=== PATIENT | female | born 1990 | race Caucasian/White ===

== ENCOUNTER 2020-07-14 06:52 | Inpatient (IN) | payer BC, SELFPAY ==
[2020-07-14] VITALS (79 sets, daily range): BP systolic 63–128; BP diastolic 35–96; PULSE 46–120; RESP 16; TEMP 36.1–36.7; O2SAT 83–100; BMI 29.5
[2020-07-14 08:19] LABS: Basophils Percent Auto 0.2 % (0.2-1.2); Eosinophils Absolute Auto 0.1 K/mm3 (0-0.3); Eosinophils Percent Auto 1.5 % (0-4.4); Hematocrit 37.1 % (37.0-47.0); Hemoglobin 12.5 g/dL (12.0-15.0); Immature Granulocyte Absolute 0.05 K/mm3 (0.00-0.031); Immature Granulocyte Percent A 0.6 % (0-0.5); Lymphocytes Absolute Auto 1.99 K/mm3 (0.9-3.2); Lymphocytes Percent Auto 23.2 % (18.3-44.2); Mean Corpuscular HGB Conc 33.7 g/dl (32-36); Mean Corpuscular Hemoglobin 33.2 pg (26-34); Mean Corpuscular Volume 98.7 fl (80-100); Mean Platelet Volume 11.1 fl (7.4-10.4); Monocytes Absolute Auto 0.4 K/mm3 (0.1-0.6); Monocytes Percent Auto 4.8 % (2.6-8.5); Neutrophils Percent Auto 69.7 % (45.5-73.1); Platelet Count Result 186 k/mm3 (150-375); Red Blood Count 3.76 M/mm3 (4.2-5.4); Red Cell Distribution Width 12.9 % (11.5-14.5); White Blood Count 8.6 K/mm3 (4.5-10.0)
[2020-07-14] MEDS: LACTATED RINGERS 1,000 ML 125 ML IV CONT ×2 (08:19→09:09)
[2020-07-14] MEDS: OXYTOCIN 30 UNITS/NS 500 ML 30 UNITS/500 ML BAG IV CONT (08:20)
[2020-07-14 08:28] LABS: Glucose Point of Care 115 (65-105)
[2020-07-14 09:04] LABS: HIV 1/2 Ab P24 Ag Result Negative (Negative)
--- NOTE | 2020-07-14 09:28 | WPDANESEPP ---
Anes - Eval Pre Procedure Procedure: labor epidural Date/Time: 07/14/20 09:28 Surgeon: Cathi Preop Diagnosis: Labor pain Pre Op Diagnosis: ind Patient Data Age: 30 Gender: F Height: Weight: Last Vital Signs Temp 36.2 C L 07/14/20 08:00 Pulse 66 07/14/20 09:27 BP 97/61 L 07/14/20 09:27 Pulse Ox 100 07/14/20 09:25 Allergies Allergy/AdvReac Type Severity Reaction Status Date / Time No Known Allergies Allergy Verified 06/17/20 13:02 Home Medications Medication Instructions Recorded Confirmed Type PNV cmb#95-ferrous fumarate-FA 1 tablet PO DAILY 06/17/20 06/17/20 History [] fluoxetine 20 mg PO DAILY 06/17/20 06/17/20 History Laboratory Tests 07/14/20 07/14/20 07/14/20 07:24 07:24 07:24 WBC 8.6 K/mm3 K/mm3 (4.5-10.0) RBC 3.76 M/mm3 L M/mm3 (4.2-5.4) Hgb 12.5 g/dL g/dL (12.0-15.0) Hct 37.1 % % (37.0-47.0) MCV 98.7 fl fl (80-100) MCH 33.2 pg pg (26-34) MCHC 33.7 g/dl g/dl (32-36) RDW 12.9 % % (11.5-14.5) Plt Count 186 k/mm3 k/mm3 (150-375) MPV 11.1 fl H fl (7.4-10.4) Immature Gran % (Auto) 0.6 % H % (0-0.5) Neut % (Auto) 69.7 % % (45.5-73.1) Lymph % (Auto) 23.2 % % (18.3-44.2) [place] % (Auto) 4.8 % % (2.6-8.5) Eos % (Auto) 1.5 % % (0-4.4) Baso % (Auto) 0.2 % % (0.2-1.2) Lymph # (Auto) 1.99 K/mm3 K/mm3 (0.9-3.2) [place] # (Auto) 0.4 K/mm3 K/mm3 (0.1-0.6) Eos # (Auto) 0.1 K/mm3 K/mm3 (0-0.3) Baso # (Auto) 0.0 K/mm3 K/mm3 (0.0-0.1) Abs Immat Gran (auto) 0.05 K/mm3 H K/mm3 (0.00-0.031) Absolute Neuts (auto) 6.0 K/mm3 K/mm3 (1.3-6.7) Absolute Nucleated RBC 0.0 K/mm3 K/mm3 (0.0-0.012) Nucleated RBC % 0.0 % % (0.0-0.2) POC Capillary Glucose RPR Pending HIV 1&2 Ab/P24 Ag 4thGn Negative (Negative) 07/14/20 08:22 WBC RBC Hgb Hct MCV MCH MCHC RDW Plt Count MPV Immature Gran % (Auto) Neut % (Auto) Lymph % (Auto) [place] % (Auto) Eos % (Auto) Baso % (Auto) Lymph # (Auto) [place] # (Auto) Eos # (Auto) Baso # (Auto) Abs Immat Gran (auto) Absolute Neuts (auto) Absolute Nucleated RBC Nucleated RBC % POC Capillary Glucose 115 mg/dl H mg/dl (65-105) RPR HIV 1&2 Ab/P24 Ag 4thGn Patient hx anesthesia problems: none Family hx anesthesia problems: none [facility] Past Medical History Medical History (Updated 07/14/20 @ 09:29 by Mauricio Davila DO) Anxiety Family History Family History (Updated 06/17/20 @ 13:06 by Nereida Noel RN) Mother Hypertension Grandparent Diabetes mellitus Grandparent Pancreas cancer Grandparent Lung cancer Father Diverticulitis Social History Social History Substance use: never Spiritual care concerns: No Exam Day of Procedure 07/14/20 09:28
--- NOTE | 2020-07-14 09:40 | WPDOBADMIT ---
Obstetrics - Admit Note Admission Note: record reviewed. Additions to the history and/or subsequent changes in the physical findings follow. 30 y/o at 39 1/7 weeks here for induction of labor. GBS neg. Had elevated GCT at 162, declined the three hour diagnostic test. However, she had two days of accuchecks that were normal. So no diagnosis of gestational diabetes in this . AVSS NST reactive TOCO: contractions every 4-5 min ABD soft, nontender, gravid, vertex EXT nontender Cervix 4/50/-2. AROM with clear fluid. Vertex. A: IUP at term with favorable cervix. P: Oxytocin. Anticipate .
--- NOTE | 2020-07-14 11:50 | P.PCNOB_ITS ---
OB - Delivery Note Procedure Delivery date: 07/14/20 Procedure: Induction of labor with Induction method: AROM and per pitocin protocol Delivery monitor: external FHT, external uterine and internal uterine Route of delivery: Laceration Description: Perineal - 2nd Degree Delivery repair: vicryl (3-0) Specimen: Yes (cord blood) Estimated blood loss (mL): 80 Anesthesia type: Epidural Disposition: PACU Complications: None Narrative: 30 y/o at 39 1/7 weeks gestation who presented to the hospital for induction of labor. Oxytocin was administered intravenously. Amniotomy was performed with return of clear fluid. She received an epidural for pain control. Her labor progressed and her cervix dilated completely. She pushed with good effort and delivered the infant's head to the perineum, followed by the body. The nose and mouth were bulb suctioned. After a delay, the cord was clamped and cut. The was handed off the field. Cord blood was collected. The placenta delivered spontaneously and was grossly normal in appearance. The usual 3 vessel cord was noted. A second degree midline perineal laceration was sustained. This was reapproximated using 3 0 Vicryl in the usual layered fashion. Excellent hemostasis resulted as did excellent reapproximation of the normal anatomy. Needle and instrument counts were correct. The patient was taken to recovery room in stable condition. The went to the nursery in stable condition. I was present and scrubbed for the entire delivery. [place] Baby Date of : 07/14/20 Time of : 11:35 Weeks of gestation at delivery: 39 gender: Male Weight (pounds): 8 Weight (ounces): 7 presentation: vertex position: Left Occiput Anterior Placenta delivery description: Spontaneous and Normal Configuration cord vessel description: 3 Vessels score one minute: 8 score five minutes: 9
[2020-07-14 11:55] LABS: Rapid Plasma Reagin Non-Reactive (NonReactive)
[2020-07-14] MEDS: OXYTOCIN 30 UNITS/NS 500 ML 30 UNITS/500 ML BAG 125 UNITS IV CONT (12:18)
[2020-07-14] MEDS: SODIUM CHLORIDE 0.9% IV 300 ML 600 ML I-UTERINE (12:19)
--- NOTE | 2020-07-14 14:26 | PC.NURSE ---
Patient transferred to post room #285 per wheelchair from labor and delivery. Support person present. Oriented to unit, room, information board, rooming in, admission packet and security measures. Patient verbalizes understanding.
[2020-07-14] MEDS: IBUPROFEN 600 MG TABLET PO ×2 (16:45→23:42)
[2020-07-14] MEDS: ACETAMINOPHEN 325 MG TABLET 650 MG PO (19:57)
[2020-07-15] MEDS: ACETAMINOPHEN 325 MG TABLET 650 MG PO ×4 (02:15→22:09)
[2020-07-15] MEDS: IBUPROFEN 600 MG TABLET PO ×3 (05:17→18:45)
[2020-07-15 05:36] LABS: Hematocrit 35.3 % (37.0-47.0); Hemoglobin 11.8 g/dL (12.0-15.0)
--- NOTE | 2020-07-15 07:17 | WPDANLDPN2 ---
Anes-Prog Note L&D Date/Time: 07/15/20 07:17 Comfortable throughout: labor and delivery Neuraxial method: epidural Epidural/Spinal procedure site: clean & non-tender Neuro status: Neuro function grossly intact. Cardiovascular status: normal Respiratory status: normal Airway patency: baseline Mental status: baseline Post-Op hydration status: normal Vital Signs: Last Vital Signs Temp 36.7 C 07/14/20 19:50 Pulse 72 07/14/20 19:50 Resp 16 07/14/20 19:50 BP 121/66 07/14/20 19:50 Pulse Ox 100 07/14/20 19:50 Pain score (VAS): 09/28 I/O: Intake & Output 07/14/20 07/14/20 07/15/20 15:59 23:59 07:59 Intake Total 2500 500 Balance 2500 500 Post-procedural complaints: none Patient feedback: Patient satisfied with anesthetic care.
[2020-07-15 08:00] VITALS: BP 97/62; PULSE 60; RESP 18; TEMP 37.1; O2SAT 98
[2020-07-15] MEDS: DOCUSATE SODIUM 100 MG CAPSULE PO ×2 (08:42→16:19)
[2020-07-15] MEDS: MULTIVIT/MIN/PREN/FOL AC/IRON TABLET 1 TAB PO (08:42)
[2020-07-15] MEDS: FLUoxetine HCL 20 MG CAPSULE PO (08:43)
--- NOTE | 2020-07-15 11:05 | PC.NURSE ---
Consulted with patient, mother reports this to be 3rd child to breastfeed. Mother is pleased is latching with minimal efforts. is spitting up after feedings, reviewed by description it may be amniotic fluid. Assured mother this is normal and should resolve within a few days. Reviewed infant feeding cues, frequencies, duration of feedings, feeding elimination flow sheet, and signs of adequate intake. Requested mother call out for next feeding for observation/charting.
--- NOTE | 2020-07-15 15:45 | PC.NURSE ---
Mother called out for assist with waking for feeding. Reviewed feeding cues, frequencies, duration of feedings, feeding elimination flow sheet, and signs of adequate intake. Demonstrated stimulation techniques to wake for feeding. easily awoken for feeding with feeding cues noted. Assisted with infant to breast. Reviewed positioning/alignment in cross cradle, holding breast in U hold and guided asymmetrical latch on. Infant was able to latch correctly. Infant nursed eagerly, with steady draws and frequent swallowing noted. Reviewed signs of a correct latch, effective nursing and suck swallow ratio. Infant was[able/unable] to maintain latch without discomfort to mother. Nipple care reviewed. Instructed mother to call out for RN assistance if she is unable to latch infant for feeding or she has discomfort with nursing. Instructed feeding should be initiated three hours from start of last feeding or if feeding cues are noted before. Mother voiced understanding of information shared.
--- NOTE | 2020-07-15 17:30 | PM.OBPNVD ---
OB - PN: Subj Subjective Date/time seen: 07/15/20 17:30 Narrative: Pain OK. Would like circumcision for son. OB - PN: Obj Data Labs CBC & Chem 7: 07/15/20 05:21 Labs: Laboratory Results - last 24 hr 07/15/20 05:21 Hgb 11.8 L Hct 35.3 L OB - PN A/P Plan Comments: A: PPD#1, doing well. P: Routine care. Reviewed circ. Exam Psych: Other: AVSS ABD soft, nontender, fundus firm EXT nontender
--- NOTE | 2020-07-15 17:30 | PM.OBDSVD ---
DS: Admitting Diagnosis Admitting Diagnosis Admitting Diagnosis: IUP at term DS: Discharge Diagnosis Discharge Diagnosis (1) (normal spontaneous vaginal delivery): Code(s): O80 - Encounter for full-term uncomplicated delivery Status: Acute OB - DS: Summary OB Procedures : None OB Procedures Intrapartum: Spontaneous Vag Delivery OB Procedures: : None DS: Data Data Completed and Pending Labs on day of discharge: Labs from last 24 hours 07/15/20 05:21 Hgb 11.8 L Hct 35.3 L Discharge Plan Discharge Attending physician on discharge: Iglesia Winkler Discharging Clinician: Iglesia Winkler Patient Disposition: Home, Self-Care Activity: pelvic rest Diet: regular Discharge Instructions: Call or return if temperature above 100.4? F, increased abdominal pain, increased vaginal bleeding or any new problems. Stand Alone Forms: General Discharge Information Follow-up/Referrals: Iglesia Winkler MD [Physician] - 6 Weeks Discharge Medications: New ibuprofen 600 mg tablet 600 mg PO Q6H PRN (Reason: cramps) Qty: 30 RF: 0 fluoxetine 20 mg capsule 20 mg PO DAILY Qty: 30 RF: 2 No Action fluoxetine 20 mg Tablet 20 mg PO DAILY RF: 0 PNV cmb#95-ferrous fumarate-FA [] 28 mg iron- 800 mcg Tablet 1 tablet PO DAILY RF: 0 Date of admission: 07/14/20 06:52 Primary Care Provider: PHYSICIAN,STEEL POST INSTALLER Admitting Provider: Iglesia Winkler Attending physician on admission: Iglesia Winkler Condition: Stable
[2020-07-15 20:30] VITALS: BP 109/65; PULSE 72; RESP 16; TEMP 36.5; O2SAT 100
[2020-07-16] MEDS: IBUPROFEN 600 MG TABLET PO ×2 (02:45→09:32)
[2020-07-16] MEDS: ACETAMINOPHEN 325 MG TABLET 650 MG PO (05:40)
[2020-07-16 08:40] VITALS: BP 99/64; PULSE 55; RESP 18; TEMP 36.6; O2SAT 97
--- NOTE | 2020-07-16 09:00 | PC.NURSE ---
Mother is able to independently latch infant with appropriate positioning/alignment. She denies any nipple discomfort, is feeding as required and waking to feed if needed. has had at least 8 effective feedings in the past 24 hours, and is currently meeting outcomes for weight, output, jaundice and feeding frequencies. Mother states she feels confident to continue effective at home. Reviewed transition to breast milk, signs of adequate intake, and engorgement/relief. Instructed to call ICP if intake/output less than required. Reviewed regular medications mother is taking. Information provided per Rufina. Reviewed community resources on the [facility] website and in the Mom/Baby guide. Information on outpatient services provided. Mother has no further questions at this time.
--- NOTE | 2020-07-16 09:10 | PM.OBPNVD ---
OB - PN: Subj Subjective Date/time seen: 07/16/20 09:10 Narrative: Pain OK. Would like to go home. OB - PN: Obj Data Labs CBC & Chem 7: 07/15/20 05:21 OB - PN A/P Plan Comments: A: PPD#2, doing well. P: Home to f/u 6 weeks. Exam Psych: Other: AVSS ABD soft, nontender, fundus firm EXT nontender
--- NOTE | 2020-07-16 09:30 | PC.NURSE ---
Patient received instruction on viewing the discharge video Mother & Baby Care, The First Two Weeks . Patient was given the opportunity and encouraged to ask questions. Patient verbalized understanding of information shared and has been given the mother/baby guide for home reference.
[2020-07-16] MEDS: DOCUSATE SODIUM 100 MG CAPSULE PO (09:32)
[2020-07-16] MEDS: FLUoxetine HCL 20 MG CAPSULE PO (09:33)
[2020-07-16] MEDS: MULTIVIT/MIN/PREN/FOL AC/IRON TABLET 1 TAB PO (09:33)
[2020-07-18 10:56] VITALS: BP 112/66; PULSE 79; RESP 16; TEMP 37; O2SAT 98
== END 2020-07-16 15:20 | disposition home or self-care (01) | DRG 807 ==
LOC: ANHLDR 06:55 → ANHOB2 15:31
PROVIDERS: Admitting Provider Obstetrics & Gynecology; Visit Provider Obstetrics & Gynecology
DX: O62.3 Precipitate labor (principal); Z37.0 Single live birth; Z3A.39 39 weeks gestation of pregnancy; Z23 Encounter for immunization; O70.1 Second degree perineal laceration during delivery; O99.344 Other mental disorders complicating childbirth; F41.8 Other specified anxiety disorders
CPT/HCPCS: 36415; 85014; 85018; 85025; 86592; 86703; 86850; 86900; 86901; 90471; 90653; A9270; G0008; G0432; J2370; J2590; J2795; J7030; J7120

== ENCOUNTER 2021-11-19 04:52 | Inpatient (IN) | payer BC, SELFPAY ==
[2021-11-19] VITALS (81 sets, daily range): BP systolic 53–139; BP diastolic 25–92; PULSE 57–124; RESP 16–20; TEMP 36.6–36.9; O2SAT 98–100; BMI 30.9
--- NOTE | 2021-11-19 05:17 | LDADM ---
This patient, Kami Hughes, was admitted to Labor/Delivery/Recovery 104 on 11/19/21 at 04:52. Plans for labor, pain management and were discussed with patient. Patient/family oriented to hospital policies and general routines including ID bracelet, bed and alarms, visiting hours, pain management, procedures, bathroom and other care routines, personal items, smoking policy, room service/diet and guest tray routines, security routines, and visiting hours. Patient/Family are encouraged to report perceived risks to care and to ask questions if they do not understand what they are told or what they should do. See [facility]BIX for further documentation.
[2021-11-19] MEDS: LACTATED RINGERS 1,000 ML 125 ML IV CONT ×3 (05:57→07:57)
[2021-11-19 05:58] LABS: Basophils Absolute Auto 0.1 K/mm3 (0.0-0.1); Basophils Percent Auto 0.4 % (0.2-1.2); Eosinophils Absolute Auto 0.1 K/mm3 (0-0.3); Eosinophils Percent Auto 1.2 % (0-4.4); Hematocrit 32.5 % (37.0-47.0); Hemoglobin 10.2 g/dL (12.0-15.0); Immature Granulocyte Percent A 1.7 % (0-0.5); Lymphocytes Absolute Auto 2.52 K/mm3 (0.9-3.2); Mean Corpuscular HGB Conc 31.4 g/dl (32-36); Mean Corpuscular Hemoglobin 29.4 pg (26-34); Mean Corpuscular Volume 93.7 fl (80-100); Mean Platelet Volume 10.7 fl (7.4-10.4); Monocytes Absolute Auto 0.8 K/mm3 (0.1-0.6); Monocytes Percent Auto 6.8 % (2.6-8.5); Neutrophils Absolute Auto 8.3 K/mm3 (1.3-6.7); Neutrophils Percent Auto 68.9 % (45.5-73.1); Platelet Count Result 236 k/mm3 (150-375); Red Blood Count 3.47 M/mm3 (4.2-5.4); Red Cell Distribution Width 13.7 % (11.5-14.5)
[2021-11-19] MEDS: OXYTOCIN 30 UNITS/NS 500 ML 30 UNITS/500 ML BAG IV CONT (05:58)
--- NOTE | 2021-11-19 06:14 | P.PNAN_ITS ---
Anes - Eval Pre Procedure Procedure: labor epidural Date/Time: 11/19/21 06:14 Surgeon: tiffanie Pre Op Diagnosis: IOL Patient Data Age: 31 Gender: F Height: 1.75 m Weight: 95 kg Last Vital Signs Pulse 81 11/19/21 06:02 BP 117/77 11/19/21 06:02 Allergies Allergy/AdvReac Type Severity Reaction Status Date / Time No Known Allergies Allergy Verified 06/17/20 13:02 Home Medications Medication Instructions Recorded Confirmed Type PNV cmb#95-ferrous fumarate-FA 1 tablet PO DAILY 06/17/20 06/17/20 History [] fluoxetine 20 mg PO DAILY #30 cap 07/15/20 11/19/21 Rx ibuprofen 600 mg PO Q6H PRN #30 tablet 07/15/20 Rx Laboratory Tests 11/19/21 11/19/21 11/19/21 05:49 05:49 05:49 WBC 12.0 K/mm3 H K/mm3 (4.5-10.0) RBC 3.47 M/mm3 L M/mm3 (4.2-5.4) Hgb 10.2 g/dL L g/dL (12.0-15.0) Hct 32.5 % L % (37.0-47.0) MCV 93.7 fl fl (80-100) MCH 29.4 pg pg (26-34) MCHC 31.4 g/dl L g/dl (32-36) RDW 13.7 % % (11.5-14.5) Plt Count 236 k/mm3 k/mm3 (150-375) MPV 10.7 fl H fl (7.4-10.4) Immature Gran % (Auto) 1.7 % H % (0-0.5) Neut % (Auto) 68.9 % % (45.5-73.1) Lymph % (Auto) 21.0 % % (18.3-44.2) [place] % (Auto) 6.8 % % (2.6-8.5) Eos % (Auto) 1.2 % % (0-4.4) Baso % (Auto) 0.4 % % (0.2-1.2) Lymph # (Auto) 2.52 K/mm3 K/mm3 (0.9-3.2) [place] # (Auto) 0.8 K/mm3 H K/mm3 (0.1-0.6) Eos # (Auto) 0.1 K/mm3 K/mm3 (0-0.3) Baso # (Auto) 0.1 K/mm3 K/mm3 (0.0-0.1) Abs Immat Gran (auto) 0.20 K/mm3 H K/mm3 (0.00-0.031) Absolute Neuts (auto) 8.3 K/mm3 H K/mm3 (1.3-6.7) Absolute Nucleated RBC 0.0 K/mm3 K/mm3 (0.0-0.012) Nucleated RBC % 0.0 % % (0.0-0.2) RPR Pending HIV 1&2 Ab/P24 Ag 4thGn Pending Patient hx anesthesia problems: none Family hx anesthesia problems: none Results Review: All pre-operative results and documents have been reviewed as part of the pre-operative evaluation. [facility] Past Medical History Medical History (Updated 07/15/20 @ 17:30 by Iglesia Winkler MD) Anxiety Family History Family History Mother Hypertension Grandparent Diabetes mellitus Grandparent Pancreas cancer Grandparent Lung cancer Father Diverticulitis Social History Social History Smoking status: Never smoker Substance use: current Spiritual care concerns: No Exam Day of Procedure 11/19/21 06:14
[2021-11-19 07:06] LABS: HIV 1/2 Ab P24 Ag Result Negative (Negative)
--- NOTE | 2021-11-19 08:40 | WPDOBADMIT ---
Obstetrics - Admit Note Admission Note: record reviewed. No pertinent additions to the history and/or any subsequent changes in the physical findings that are not consistent with the expected course of the were found. Additions to the history and/or subsequent changes in the physical findings follow: 31 y/o at 39 weeks gestation here for induction of labor. GBS neg. AVSS NST reactive TOCO: contractions every 2-4 min ABD soft, nontender, gravid, vertex EXT nontender Cervix 5/50/-2. AROM with clear fluid. Vertex. A: IUP at term with favorable cervix, desires induction of labor. P: Oxytocin. Anticipate .
--- NOTE | 2021-11-19 09:57 | P.PCNOB_ITS ---
OB - Delivery Note Procedure Delivery date: 11/19/21 Procedure: Induction of labor with Induction method: AROM and Per Pitocin Protocol Delivery monitor: External FHT and External Uterine Route of delivery: Laceration Description: Perineal - 2nd Degree Delivery repair: vicryl (3-0) Specimen: Yes (cord blood) Quantitative Blood Loss (ml): 425 Anesthesia type: Epidural Disposition: PACU Complications: None Narrative: 31 y/o at 39 weeks gestation who presented to the hospital for induction of labor. Oxytocin was administered intravenously. Amniotomy was performed with return of clear fluid. She received an epidural for pain control. Her labor progressed and her cervix dilated completely. She pushed with good effort and delivered the 's head to the perineum, followed by the body. The nose and mouth were bulb suctioned. After a delay, the cord was clamped and cut. The infant was handed off the field. Cord blood was collected. The placenta delivered spontaneously and was grossly normal in appearance. The usual 3 vessel cord was noted. A second degree midline perineal laceration was sustained. This was reapproximated using 3 0 Vicryl in the usual layered fashion. Excellent hemostasis resulted as did excellent reapproximation of the normal anatomy. Needle and instrument counts were correct. The patient was taken to recovery room in stable condition. The infant went to the nursery in stable condition. I was present and scrubbed for the entire delivery. [place] Baby Date of : 11/19/21 Time of : 09:42 Weeks of gestation at delivery: 39 Infant gender: Female Weight (pounds): 9 Weight (ounces): 2 presentation: vertex position: Left Occiput Anterior Placenta delivery description: Spontaneous and Normal Configuration Cord Vessel Description: 3 Vessels and Delayed Cord Clamping score one minute: 9 score five minutes: 9
--- NOTE | 2021-11-19 09:57 | PM.OBDSVD ---
DS: Admitting Diagnosis Discharge Date 11/21/21 Admitting Diagnosis IUP at 39 weeks Favorable cervix DS: Discharge Diagnosis Discharge Diagnosis (1) (normal spontaneous vaginal delivery): Code(s): O80 - Encounter for full-term uncomplicated delivery Status: Acute OB - DS: Summary OB Procedures : None OB Procedures Intrapartum: Spontaneous Vag Delivery OB Procedures: : None DS: Data Data Completed and Pending Labs on day of discharge: Labs from last 24 hours 11/19/21 11/19/21 11/19/21 05:49 05:49 05:49 WBC RBC Hgb Hct MCV MCH MCHC RDW Plt Count MPV Immature Gran % (Auto) Neut % (Auto) Lymph % (Auto) [place] % (Auto) Eos % (Auto) Baso % (Auto) Lymph # (Auto) [place] # (Auto) Eos # (Auto) Baso # (Auto) Abs Immat Gran (auto) Absolute Neuts (auto) Absolute Nucleated RBC Nucleated RBC % RPR Pending HIV 1&2 Ab/P24 Ag 4thGn Negative Blood Type A Positive Antibody Screen Negative 11/19/21 05:49 WBC 12.0 H RBC 3.47 L Hgb 10.2 L Hct 32.5 L MCV 93.7 MCH 29.4 MCHC 31.4 L RDW 13.7 Plt Count 236 MPV 10.7 H Immature Gran % (Auto) 1.7 H Neut % (Auto) 68.9 Lymph % (Auto) 21.0 [place] % (Auto) 6.8 Eos % (Auto) 1.2 Baso % (Auto) 0.4 Lymph # (Auto) 2.52 [place] # (Auto) 0.8 H Eos # (Auto) 0.1 Baso # (Auto) 0.1 Abs Immat Gran (auto) 0.20 H Absolute Neuts (auto) 8.3 H Absolute Nucleated RBC 0.0 Nucleated RBC % 0.0 RPR HIV 1&2 Ab/P24 Ag 4thGn Blood Type Antibody Screen Discharge Plan Discharge Attending physician on discharge: Iglesia Winkler Discharging Clinician: Iglesia Winkler Patient Disposition: Home, Self-Care Activity: pelvic rest Diet: regular Discharge Instructions: Call or return if temperature above 100.4? F, increased abdominal pain, increased vaginal bleeding or any new problems. Stand Alone Forms: General Discharge Information Follow-up/Referrals: Iglesia Winkler MD [Physician] - 6 Weeks Discharge Medications: New ibuprofen 600 mg tablet 600 mg PO Q6H PRN (Reason: cramps) Qty: 30 RF: 0 hydrocodone-acetaminophen 5-325 mg tablet 1 tablet PO Q4H PRN (Reason: pain) Qty: 20 RF: 0 ferrous sulfate 325 mg (65 mg iron) tablet 325 mg PO DAILY Qty: 30 RF: 0 bupropion HCl [Wellbutrin XL] 150 mg tablet extended release 24 hr 150 mg PO QAM Qty: 30 RF: 0 fluoxetine 40 mg capsule 40 mg PO DAILY Qty: 30 RF: 0 Discontinued PNV cmb#95-ferrous fumarate-FA [] 28 mg iron- 800 mcg Tablet 1 tablet PO DAILY RF: 0 ibuprofen 600 mg tablet 600 mg PO Q6H PRN (Reason: cramps) Qty: 30 RF: 0 fluoxetine 20 mg capsule 20 mg PO DAILY Qty: 30 RF: 2 Date of admission: 11/19/21 04:52 Primary Care Provider: PHYSICIAN,WOOD MACHINIST Admitting Provider: Iglesia Winkler Attending physician on admission: Iglesia Winkler Condition: Stable
[2021-11-19] MEDS: OXYTOCIN 30 UNITS/NS 500 ML 30 UNITS/500 ML BAG 125 UNITS IV CONT (10:12)
[2021-11-19] MEDS: WITCH HAZEL 40 PADS 1 PAD TOPICAL (11:23)
[2021-11-19] MEDS: IBUPROFEN 600 MG TABLET PO ×2 (11:23→18:49)
[2021-11-19] MEDS: BENZOCAINE 20% AER SPR (*SP) 56 GM CAN 1 SPRAY TOPICAL (11:23)
[2021-11-19 11:40] LABS: Rapid Plasma Reagin Non-Reactive (NonReactive)
--- NOTE | 2021-11-19 14:25 | PC.NURSE ---
Patient transferred to post room # 278 per wheelchair at 1425. Support person present. Oriented to unit, room, information board, rooming in, admission packet and security measures. Patient verbalizes understanding.
[2021-11-19] MEDS: DOCUSATE SODIUM 100 MG CAPSULE PO (16:44)
[2021-11-19] MEDS: ACETAMINOPHEN 325 MG TABLET 650 MG PO (20:38)
[2021-11-20] MEDS: IBUPROFEN 600 MG TABLET PO ×3 (00:21→23:48)
[2021-11-20] MEDS: ACETAMINOPHEN 325 MG TABLET 650 MG PO (03:22)
[2021-11-20 03:30] VITALS: BP 125/75; PULSE 70; RESP 16; TEMP 36.9; O2SAT 98
[2021-11-20 04:01] LABS: Hematocrit 28.7 % (37.0-47.0); Hemoglobin 8.8 g/dL (12.0-15.0)
[2021-11-20 07:35] VITALS: BP 116/69; PULSE 61; RESP 18; TEMP 37.3; O2SAT 99
--- NOTE | 2021-11-20 08:40 | PM.OBPNVD ---
OB - PN: Subj Subjective Date/time seen: 11/20/21 08:40 Narrative: Pain OK. OB - PN: Obj Data Labs CBC & Chem 7: 11/20/21 03:27 Labs: Laboratory Results - last 24 hr 11/19/21 11/20/21 05:49 03:27 Hgb 8.8 L Hct 28.7 L RPR Non-reactive OB - PN A/P Plan Comments: A: PPD#1, doing well. P: Routine care. Exam Psych: Other: AVSS ABD soft, nontender, fundus firm EXT nontender
[2021-11-20 09:45] VITALS: PULSE 61; RESP 18; O2SAT 99
[2021-11-20] MEDS: MULTIVIT/MIN/PREN/FOL AC/IRON TABLET 1 TAB PO (09:45)
[2021-11-20] MEDS: HYDROcodone/acetaminophen (*CRX) 5-325 MG TABLET 1 TAB PO ×3 (09:45→23:48)
[2021-11-20] MEDS: DOCUSATE SODIUM 100 MG CAPSULE PO (09:45)
[2021-11-20] MEDS: FLUoxetine HCL 20 MG CAPSULE PO (09:45)
[2021-11-20] MEDS: POLYSACCHARIDE IRON COMPLEX 150 MG CAPSULE PO (09:45)
--- NOTE | 2021-11-20 13:25 | WPDANLDPN2 ---
Anes-Prog Note L&D Date/Time: 11/20/21 13:25 Comfortable throughout: labor and delivery Neuraxial method: epidural Epidural/Spinal procedure site: clean & non-tender Neuro status: Neuro function grossly intact. Cardiovascular status: normal Respiratory status: normal Airway patency: baseline Mental status: baseline Post-Op hydration status: normal Vital Signs: Last Vital Signs Temp 37.3 C 11/20/21 07:35 Pulse 61 11/20/21 09:45 Resp 18 11/20/21 09:45 BP 116/69 11/20/21 07:35 Pulse Ox 99 11/20/21 09:45 Pain score (VAS): 0 Post-procedural complaints: none Patient feedback: Patient satisfied with anesthetic care.
[2021-11-20 14:20] VITALS: BP 111/69; PULSE 71; RESP 18; TEMP 36.8; O2SAT 99
[2021-11-20 20:19] VITALS: BP 133/82; PULSE 67; RESP 18; TEMP 36.3; O2SAT 100
[2021-11-21 09:00] VITALS: BP 109/68; PULSE 64; RESP 18; TEMP 36.5
[2021-11-21] MEDS: HYDROcodone/acetaminophen (*CRX) 5-325 MG TABLET 1 TAB PO (09:15)
[2021-11-21] MEDS: DOCUSATE SODIUM 100 MG CAPSULE PO (09:15)
[2021-11-21] MEDS: IBUPROFEN 600 MG TABLET PO (09:15)
[2021-11-21] MEDS: POLYSACCHARIDE IRON COMPLEX 150 MG CAPSULE PO (09:15)
[2021-11-21] MEDS: TETANUS,DIPHTHERIA,AC PERTUSSIS ADULT (0.5 ML) BOOSTRIX IM (09:16)
--- NOTE | 2021-11-21 11:29 | PM.OBPNVD ---
OB - PN: Subj Subjective Date/time seen: 11/21/21 11:29 Narrative: Pain OK. Would like to go home. OB - PN: Obj Data Labs CBC & Chem 7: 11/20/21 03:27 OB - PN A/P Plan Comments: A: PPD#2, doing well. P: Home to f/u 6 weeks. Exam Psych: Other: AVSS ABD soft, nontender, fundus firm EXT nontender
[2021-11-23 07:44] VITALS: BP 118/72; PULSE 91; RESP 20; TEMP 36.5; O2SAT 99
== END 2021-11-21 13:56 | disposition home or self-care (01) | DRG 807 ==
LOC: ANHLDR 04:57 → ANHOB2 14:43
PROVIDERS: Admitting Provider Obstetrics & Gynecology; Visit Provider Obstetrics & Gynecology
DX: O70.1 Second degree perineal laceration during delivery (principal); Z37.0 Single live birth; Z3A.39 39 weeks gestation of pregnancy
CPT/HCPCS: 36415; 85014; 85018; 85025; 86592; 86703; 86850; 86900; 86901; 90715; A9270; G0432; J2590; J2795; J7120

== ENCOUNTER 2022-03-18 12:24 | Outpatient (CLI) | payer BC, SELFPAY ==
[2022-03-18 14:22] LABS: Hematocrit 38.5 % (37.0-47.0); Hemoglobin 11.9 g/dL (12.0-15.0)
== END 2022-03-18 12:25 | disposition home or self-care (01) ==
PROVIDERS: Anesthesiology; Visit Provider Obstetrics & Gynecology
DX: D64.9 Anemia, unspecified (principal)
CPT/HCPCS: 36415; 85014; 85018

== ENCOUNTER 2022-03-24 02:16 | Day surgery (SDC) | payer BC, SELFPAY ==
[2022-03-17 15:11] VITALS: BMI 29.5
--- NOTE | 2022-03-17 15:30 | SUR.PREOP ---
Addendum entered by Vera Mead RN 03/18/22 09:25: YOU MAY TAKE MORNING DOSE OF FLUOXETINE AND WELLBUTRIN WITH A SMALL SIP OF WATER. PLEASE STOP TAKING ALL VITAMINS/SUPPLEMENTS 3 DAYS PRIOR TO SURGERY (LAST DOSE 03/20/22) Original Note: Report to the Outpatient Waiting Room, entrance under the [facility] pavilion located off [facility], at time 1100 on date 03/24/2022. OR Time: 1300. - You and your visitor will be asked a series of questions to screen for COVID 19 for your protection. - Only one visitor is allowed at this time. - The patient visitor is requested to leave or wait in car when not with patient. - A mask is required within the hospital. Patients may have clear liquids (water, carbonated beverages, clear teas, apple juice) until 3 hours prior to surgery 1000 with a maximum of 20 ounces. - No food from midnight until time of surgery - Infants may have breast milk until 4 hours before surgery, infant formula 6 hours prior to surgery. - Children will be allowed to drink immediately following surgery. If applicable, please bring a bottle or sippy cup to assist with drinking. Juice, water, soda, and popsicles are readily available. For infants on formula, please bring formula the day of surgery. Pacifiers are allowed. Take the following medications with a SIP of water the morning of surgery: NA Medications to discontinue per physician NA Date to take last dose NA Please no make-up, nail kiswahili, hairspray, perfume, deodorant, or body powder the day of surgery. No jewelry (including any body piercings) or valuables the day of surgery, leave them at home. Please take a shower or bath the night before, or the morning of, surgery with an antibacterial soap. Wear comfortable, loose fitting clothing. Children are encouraged to wear pajamas. - Jewelry must be removed prior to entering the operating room. Rings and piercings that are not removed may be cut off. - The hospital will not accept responsibility for valuables. - Please leave all valuables, including medications, at home the day of surgery. If you are going home after surgery, a licensed hazmat truck driver must drive you home. - NO public transportation without another adult. - We recommend that an adult stay with you for 24 hours following discharge. - We also recommend that you do not drive, make important decision, drink alcoholic beverages, or take any drugs that were not prescribed by your health care provider for at least 24 hours after your discharge time. For Pediatric surgeries, we recommend two adults accompany the child home (only one inside the building at this time). Follow any additional instructions given to you from your surgeon. If you or anyone in your household have experienced Covid symptoms in the past week, please notify your surgeon or the nurse liaison at the phone number below for possible testing. Telephone instructions given to ____patient and asked if any additional questions and then verbalized understanding. Patient advised to call surgeon office or pre surgery nurse liaison [phone] if any additional questions.
--- NOTE | 2022-03-23 14:11 | WPDANESEPPF ---
Anes - Initial Pre Proc Eval Procedure: Operation Date: 03/24/22 13:00 Proposed Procedures p Hysteroscopy, Dilation and Curettage with Janneth Endometrial Ablation, Laparoscopic Bilateral Tubal with Fallopian Rings - Iglesia Winkler MD Date/Time: 03/23/22 14:11 Surgeon: Iglesia Winkler MD Pre Op Diagnosis: Irrg Bleeding, Desire Sterilization Patient Data Age: 32 Gender: F Height: 1.75 m Weight: 90.9 kg Allergies Allergy/AdvReac Type Severity Reaction Status Date / Time No Known Allergies Allergy Verified 03/24/22 11:41 Home Medications Medication Instructions Recorded Confirmed Type bupropion HCl 150 mg 24 hr tablet, 150 mg PO QAM #30 tabs 11/20/21 03/17/22 Rx extended release (Wellbutrin XL) ferrous sulfate 325 mg (65 mg 325 mg PO DAILY #30 tabs 11/20/21 03/17/22 Rx iron) tablet fluoxetine 40 mg capsule 40 mg PO DAILY #30 caps 11/20/21 03/17/22 Rx Patient hx anesthesia problems: none Family hx anesthesia problems: none Results Review: All pre-operative results and documents have been reviewed as part of the pre-operative evaluation. [facility] Past Medical History Medical History (Updated 03/23/22 @ 14:12 by Jase Yin MD) Anxiety Depression Hypercholesterolemia Overweight (BMI 25.0-29.9) Family History Family History Mother Hypertension Grandparent Diabetes mellitus Grandparent Pancreas cancer Grandparent Lung cancer Father Diverticulitis Social History Social History Smoking status: Never smoker Alcohol intake: current Alcohol use details: Rare- 1 or 2 per week Substance use: current Living arrangements: with family Spiritual care concerns: No Anes - Eval Final PreProcedure Day of Procedure 03/23/22 14:11 Patient weight: overweight Heart: regular rate and rhythm Lungs: clear to auscultation and normal air movement Airway: Mallampati scale class II Neurological: alert and oriented Last oral intake: >/= 8 hours ASA classification: II Emergent: no Anesthetic plan: proceed Anesthesia type and monitoring: general ETT Results Review: All pre-operative results and documents have been reviewed as part of the pre-operative evaluation. Informed Consent: The patient's anesthetic plan and its attendant risks and benefits were discussed with the patient/family/POA. Questions were solicited and answers provided to the satisfaction of the patient/family/POA.
[2022-03-24] VITALS (8 sets, daily range): BP systolic 116–135; BP diastolic 73–88; PULSE 61–87; RESP 12–20; TEMP 36.1–36.4; O2SAT 96–100
[2022-03-24] MEDS: ACETAMINOPHEN 500 MG TABLET 1000 MG PO (11:42)
[2022-03-24] MEDS: LACTATED RINGERS 1,000 ML 30 ML IV CONT ×2 (11:50→13:50)
[2022-03-24] MEDS: KETOROLAC 15 MG/ML VIAL (*BKC) IV PUSH (11:52)
--- NOTE | 2022-03-24 12:35 | PM.IMHP ---
H&P: HPI History of Present Illness Date/Time: 03/24/22 12:35 Chief Complaint: Heavy periods Narrative: 32 y/o with menses every 26 days lasting 8 days each, with heavy flow and associated anemia. She has finished childbearing and is interested in surgical management of her problem. Review of Systems Review of Systems: All systems reviewed & are unremarkable except as noted in HPI and below PMFSH Past Medical History Medical History Anxiety Depression Hypercholesterolemia Overweight (BMI 25.0-29.9) Family History Family History Mother Hypertension Grandparent Diabetes mellitus Grandparent Pancreas cancer Grandparent Lung cancer Father Diverticulitis Social History Social History Smoking status: Never smoker Alcohol intake: current Alcohol use details: Rare- 1 or 2 per week Substance use: current Living arrangements: with family Spiritual care concerns: No Meds Home Medications and Allergies Home Medications Medication Instructions Recorded Confirmed Type bupropion HCl 150 mg 24 hr tablet, 150 mg PO QAM #30 tabs 11/20/21 03/17/22 Rx extended release (Wellbutrin XL) ferrous sulfate 325 mg (65 mg 325 mg PO DAILY #30 tabs 11/20/21 03/17/22 Rx iron) tablet fluoxetine 40 mg capsule 40 mg PO DAILY #30 caps 11/20/21 03/17/22 Rx Allergies Allergy/AdvReac Type Severity Reaction Status Date / Time No Known Allergies Allergy Verified 03/24/22 11:41 Vital Signs Vital Signs - 24 hr 03/24/22 11:10 Temperature 36.4 C Pulse Rate 78 Respiratory Rate 20 Blood Pressure 116/83 Pulse Oximetry 99 Oxygen Delivery Room Air Exam Const: Orientation/consciousness: patient oriented x3 Other: Well-developed, well-nourished female in no acute distress. Neck: Thyroid: thyroid normal Lymphatic: no lymphadenopathy noted (in neck, axilla or inguinal nodes) Resp: Effort & Inspection: normal respiratory effort Auscultation: clear to auscultation bilaterally Cardio: Rate: regular rate Rhythm: regular rhythm Heart sounds: S1 normal heart sound present and S2 normal heart sound present GI: Other: ABD: Soft, nontender, nondistended. No guarding or rebound tenderness. No hepatosplenomegaly. : General: Yes no CVA tenderness Other: External genitalia: normal female hair distribution, without lesion. Urethral meatus: no lesion, non prolapsed. Bladder: no mass, nontender Vagina: well-estrogenized, without lesion or discharge. No cystocele or rectocele. Cervix: no lesion or discharge. Uterus: small, anteverted, freely mobile, nontender Adnexa: no mass or tenderness. Anus/perineum: no lesions, nontender Back/Spine/Pelvis: Back: no CVA tenderness Skin: General skin exam: normal color and no rashes or lesions noted Neuro: General: patient oriented x3 Extrem: Other: Extremities: nontender with no edema Psych: Mental Status: mental status grossly normal Affect: normal affect Assessment and Plan Assessment and plan (1) Menometrorrhagia: Code(s): N92.1 - Excessive and frequent menstruation with irregular cycle Status: Acute Assessment and Plan: A: Menometrorrhagia with desired sterility. P: We have reviewed medical as well as surgical management options. She is interested in the latter. Specifically, she would like a laparoscopic bilateral tubal ligation, hysteroscopy, dilation and sharp curettage, and endometrial ablation. She understands there are temporary methods of contraception available to her. She understands that there are nonsurgical options as well as surgical options. She understands that tubal ligation will render her permanently sterile. She understands that there is a failure rate associated with tubal ligation, as well as an inherent ectopic gestation risk. Sid
--- NOTE | 2022-03-24 12:50 | WPDHPUPDATE1 ---
History and Physical Update Update Date/Time: 03/24/22 12:50 History and Physical has been reviewed, including an updated exam of the patient. There are NO changes in the patient's condition. Risks, benefits, and alternatives have been discussed and questions answered. Patient agrees to proceed with procedure.
--- NOTE | 2022-03-24 13:46 | W.PM.PROC2 ---
Procedure Note - Detailed Date of Procedure 03/24/22 Pre-op Diagnosis Menometrorrhagia Desired sterility Post-op Diagnosis Same Procedure Performed Laparoscopic bilateral tubal ligation with Falope rings Hysteroscopy Dilation and sharp curettage Endometrial ablation Surgeon Iglesia Winkler MD Anesthesia General and Local (1% lidocaine) Findings Normal-appearing pelvis on laparoscopy. The RUQ anatomy and vermiform appendix are normal appearing. The uterus, bilateral tubes and ovaries, bilateral round and uterosacral ligaments, anterior and posterior cul de sac were all unremarkable. On hysteroscopy, the endometrial cavity was unremarkable. Both tubal ostia were seen. The uterus sounded to a depth of 9 cm with a cervical length of 3 cm. Description of Procedure The patient was taken to the operating room where general endotracheal anesthesia was administered. She was prepared and draped in the usual sterile fashion in dorsal lithotomy position. The bladder was drained with a red rubber catheter. A sterile speculum was placed into the vagina. The anterior lip of the cervix was grasped with a single-tooth tenaculum. The acorn uterine manipulator was placed. The speculum was withdrawn. Gloves were changed and attention was turned the abdomen. An infraumbilical skin incision was made with a scalpel. The abdomen was tented and a 5mm bladeless trocar was advanced under direct laparoscopic visualization. Pneumoperitoneum was administered using carbon dioxide gas. A survey of the pelvis and abdomen revealed the findings noted above. A second skin incision was made in the midline above the symphysis pubis and an 8mm bladeless trocar was advanced under direct laparoscopic visualization. The fallopian tube on the left side was followed out to the fimbriated end for identification. It was then grasped in the midportion with the Falope ring applicator. The Falope ring was applied. A good loop of tube was noted to be distal to the ring. Hemostasis was excellent. The device was reloaded and the contralateral tube was similarly identified and ligated. An excellent application was noted here as well. A total of 6 mL of 1% lidocaine was infiltrated into the serosa of the proximal tubes for postoperative anesthesia. The ports were withdrawn. The gas was allowed to escape. The skin incisions were reapproximated using interrupted subcuticular sutures of 4 0 Vicryl. Dermaflex was applied externally. Attention was redirected to the vagina, where the acorn manipulator was withdrawn and the speculum reintroduced. Ten mL of 1% lidocaine was administered in a paracervical block. The cervix was then gently dilated using Hegar dilators until an 8 mm dilator could be passed. Hysteroscopy was performed using sterile saline as a distention medium. Findings are as noted above. Sharp curettage was then performed, and endometrial curettings were collected on a Telfa pad and passed off to be sent to pathology. Finally, the the Janneth device was advanced and endometrial ablation commenced without difficulty. The device was withdrawn and a second look was taken using the hysteroscope. Excellent coverage of the endometrial cavity was noted. The tenaculum was removed. Hemostasis was excellent. Sponge, lap, needle and instrument counts were correct. The patient was awakened and taken to the recovery room in stable condition. I was present and scrubbed through the entire procedure. Implants Falope rings x 2 Estimated Blood Loss 5 Drains No Packing No Pathology Yes (Endometrial curettings) Complications None Condition Stable Disposition PACU
[2022-03-24] MEDS: fentaNYL CITRATE INJ (*CRX) 100 MCG/2 ML VIAL 25 MCG IV PUSH ×2 (14:30→14:47)
[2022-03-24] MEDS: oxyCODONE HCL (*CRX) 5 MG TAB IR PO (15:23)
== END 2022-03-24 15:51 | disposition home or self-care (01) ==
PROVIDERS: Visit Provider Obstetrics & Gynecology
PROC: 0UDB8ZZ Extraction of Endometrium, Via Natural or Artificial Opening Endoscopic (ICD-10-PCS; CPT 58558; principal; 2022-03-24 13:00)
DX: N92.1 Excessive and frequent menstruation with irregular cycle (principal); N87.9 Dysplasia of cervix uteri, unspecified; D64.9 Anemia, unspecified; F41.8 Other specified anxiety disorders; E78.5 Hyperlipidemia, unspecified; Z30.2 Encounter for sterilization
CPT/HCPCS: 58563; 58671; 88305; A4264; A9270; J0330; J1100; J1885; J2250; J2405; J2704; J3010; J7030; J7120

== ENCOUNTER 2023-08-01 21:32 | Emergency (ER) | payer BC, SELFPAY ==
--- NOTE | ~2023-08-01 | CT_ITS ---
Non-contrast CT scan of the Abdomen and Pelvis Clinical indication: Pain Technique: 2.5 mm axial scans were obtained through the abdomen and pelvis without intravenous or or al contrast. Dose reduction technique was used on this scan by utilizing automated exposure control a nd iterative reconstruction technique. The dose-length product (DLP) was 796.54 mGy-cm. Findings: Images through the lung bases reveal no abnormalities. There is no evidence of renal or ureteral calculi. The kidneys and the ureters are nondilated. The liver, spleen, pancreas, gallbladder, and adrenals appear normal. There is no aortic aneurysm. There is no evidence of bowel obstruction. Images through the pelvis were performed. There is no evidence of ascites or lymphadenopathy. Urinary bladder unremarkable. No adnexal mass seen. Impression: No significant abnormality seen. Reviewed, dictated and finalized at [facility]. [employer] Impression: No significant abnormality seen.
[2023-08-01 22:05] VITALS: BP 115/77; PULSE 77; RESP 16; TEMP 36.4; O2SAT 100
[2023-08-02 00:29] VITALS: BP 130/88; PULSE 83; RESP 16; O2SAT 100
[2023-08-02 01:22] LABS: Basophils Percent Auto 0.6 % (0.2-1.2); Eosinophils Absolute Auto 0.2 K/mm3 (0-0.3); Eosinophils Percent Auto 2.2 % (0-4.4); Hemoglobin 12.7 g/dL (12.0-15.0); Immature Granulocyte Absolute 0.02 K/mm3 (0.00-0.031); Immature Granulocyte Percent A 0.3 % (0-0.5); Lymphocytes Absolute Auto 2.49 K/mm3 (0.9-3.2); Lymphocytes Percent Auto 36.1 % (18.3-44.2); Mean Corpuscular HGB Conc 31.8 g/dl (32-36); Mean Corpuscular Hemoglobin 31.7 pg (26-34); Mean Corpuscular Volume 99.8 fl (80-100); Mean Platelet Volume 9.2 fl (7.4-10.4); Monocytes Absolute Auto 0.5 K/mm3 (0.1-0.6); Monocytes Percent Auto 7.5 % (2.6-8.5); Neutrophils Absolute Auto 3.7 K/mm3 (1.3-6.7); Neutrophils Percent Auto 53.3 % (45.5-73.1); Platelet Count Result 284 k/mm3 (150-375); Red Blood Count 4.01 M/mm3 (4.2-5.4); Red Cell Distribution Width 12.1 % (11.5-14.5); White Blood Count 6.9 K/mm3 (4.5-10.0)
[2023-08-02 01:32] LABS: Alanine Aminotransferase 18 U/L (6-35); Albumin Level 4.5 g/dL (3.5-5.1); Alkaline Phosphatase 44 U/L (38-126); Anion Gap 11 mmol/L (8-16); Aspartate Amino Transferase 26 U/L (14-36); Bilirubin,Total 0.4 mg/dL (0.2-1.3); Blood Urea Nitrogen 16 mg/dL (7-17); Calcium 9.1 mg/dL (8.4-10.2); Carbon Dioxide 27 mmol/L (22-30); Chloride 101 mmol/L (98-107); Estimated CRCL calculation 102 ml/min; Estimated Glomerular Filt Rate > 60; Glucose 85 mg/dL (65-110); Potassium 3.9 mmol/L (3.4-5.0); Sodium 139 mmol/L (137-145)
[2023-08-02] MEDS: predniSONE 20 MG TABLET 60 MG PO (01:32)
[2023-08-02] MEDS: LIDOCAINE 5% PATCH 1 PATCH TRANSDERM (01:33)
[2023-08-02] MEDS: KETOROLAC (*BKC) 60 MG/2 ML VIAL IM (01:33)
[2023-08-02] MEDS: HYDROcodone/acetaminophen (*CRX) 5-325 MG TABLET 1 TAB PO (01:33)
[2023-08-02 02:45] LABS: Appearance Urine Clear (Clear); Bacteria Urine Rare /hpf; Bilirubin Urine Negative (Negative); Blood Urine Trace (Negative); Color Urine Yellow (Yellow); Glucose Urine UA Negative (Negative); Ketones Urine Negative (Negative); Leukocyte Esterase Ur Negative LEU/UL (Negative); Nitrate Urine Negative (Negative); Non Pathogenic Casts 0-2; Protein Urine Negative (Negative); Specific Grav Ur 1.016 (1.001-1.035); Squamous Epithelial Cell Urine Occasional /hpf (Few); Urobilinogen Urine 0.2 mg/dL (<2.0); WBC Urine 0-5 /hpf; pH Urine 6.5 (5.0-9.0)
[2023-08-02 02:46] LABS: Add Urine Microscopic? YES
--- NOTE | 2023-08-02 03:02 | ED.BACK ---
HPI - Back Pain/Injury General Chief Complaint: Back Pain/Injury Stated Complaint: threw my back out Time Seen by Provider: 08/02/23 00:37 History of Present Illness HPI Narrative: Patient presents to the emergency department with cute onset mid back pain. Patient states is gradually gotten worse throughout the day. Worse with laying down. Better with certain positions standing up. Denies numbness or tingling to her fingers or toes. Related Data Allergies Allergy/AdvReac Type Severity Reaction Status Date / Time No Known Allergies Allergy Verified 08/01/23 22:04 Review of Systems Review of Systems: Negative except what is documented in the HPI [facility] Past Medical History Medical History Anxiety Depression Hypercholesterolemia Overweight (BMI 25.0-29.9) Family History Family History Mother Hypertension Grandparent Diabetes mellitus Grandparent Pancreas cancer Grandparent Lung cancer Father Diverticulitis Social History Social History Smoking status: Never smoker Alcohol intake: current Alcohol use details: Rare- 1 or 2 per week Substance use: current Living arrangements: with family Spiritual care concerns: No Exam Narrative: GENERAL: Well-appearing, well-nourished, and in pain. Patient pacing next to the bed HEAD: Normocephalic, atraumatic. EYES: PERRLA and EOMI. ENT: Nares clear, no rhinorrhea or epistaxis. Mucous membranes moist. NECK: Supple. CHEST: Clear to auscultation. No respiratory distress. HEART: Regular rate and rhythm. ABDOMEN: Soft, nontender, nondistended. EXTREMITIES: Normal range of motion. No edema. SKIN: Warm, dry, no rash. NEURO: No focal deficits. Alert and oriented x3. PSYCH: Normal mood and affect. Course Vital Signs Vital signs: Vital Signs Temperature 36.4 C L 08/01/23 22:05 Pulse Rate 77 08/01/23 22:05 Respiratory Rate 16 08/01/23 22:05 Blood Pressure 115/77 08/01/23 22:05 Pulse Oximetry 100 08/01/23 22:05 Temperature 36.9 C 08/02/23 05:03 Pulse Rate 94 08/02/23 05:03 Respiratory Rate 13 08/02/23 05:03 Blood Pressure 108/77 08/02/23 05:03 Pulse Oximetry 100 08/02/23 05:03 MDM - Back Pain/Injury MDM Narrative Medical decision making narrative: Pt still having pain. Ct pending Lab Data 08/02/23 01:17 08/02/23 01:17 Labs: Lab Results 08/02/23 08/02/23 Range/Units 01:17 02:31 WBC 6.9 (4.5-10.0) K/mm3 RBC 4.01 L (4.2-5.4) M/mm3 Hgb 12.7 (12.0-15.0) g/dL Hct 40.0 (37.0-47.0) % MCV 99.8 (80-100) fl MCH 31.7 (26-34) pg MCHC 31.8 L (32-36) g/dl RDW 12.1 (11.5-14.5) % Plt Count 284 (150-375) k/mm3 MPV 9.2 (7.4-10.4) fl Immature Gran % (Auto) 0.3 (0-0.5) % Neut % (Auto) 53.3 (45.5-73.1) % Lymph % (Auto) 36.1 (18.3-44.2) % [place] % (Auto) 7.5 (2.6-8.5) % Eos % (Auto) 2.2 (0-4.4) % Baso % (Auto) 0.6 (0.2-1.2) % Lymph # (Auto) 2.49 (0.9-3.2) K/mm3 [place] # (Auto) 0.5 (0.1-0.6) K/mm3 Eos # (Auto) 0.2 (0-0.3) K/mm3 Baso # (Auto) 0.0 (0.0-0.1) K/mm3 Abs Immat Gran (auto) 0.02 (0.00-0.031) K/mm3 Absolute Neuts (auto) 3.7 (1.3-6.7) K/mm3 Absolute Nucleated RBC 0.0 (0.0-0.012) K/mm3 Nucleated RBC % 0.0 (0.0-0.2) % Sodium 139 (137-145) mmol/L Potassium 3.9 (3.4-5.0) mmol/L Chloride 101 (98-107) mmol/L Carbon Dioxide 27 (22-30) mmol/L Anion Gap 11 (8-16) mmol/L BUN 16 (7-17) mg/dL Creatinine 0.70 (0.7-1.0) mg/dL Estim Creat Clear Calc 102 ml/min Estimated GFR > 60 (59 - ) Glucose 85 (65-110) mg/dL Calcium 9.1 (8.4-10.2) mg/dL Total Bilirubin 0.4 (0.2-1.3) mg/dL AST 26 (14-36) U/L ALT 18 (6-35) U/L Alkaline Phosphatase 44 (38-126) U/L Total Protein 7
[2023-08-02] MEDS: MORPHINE SULFATE INJ (*CRX) 10 MG/ML AMP 4 MG IM (04:24)
[2023-08-02 05:03] VITALS: BP 108/77; PULSE 94; RESP 13; TEMP 36.9; O2SAT 100
[2023-08-02 06:26] VITALS: BP 123/76; PULSE 87; RESP 15; O2SAT 99
== END 2023-08-02 06:48 | disposition home or self-care (01) ==
PROVIDERS: Emergency Provider Emergency Medicine
DX: M54.50 Low back pain, unspecified (principal); E78.00 Pure hypercholesterolemia, unspecified; E66.3 Overweight; Z68.23 Body mass index [BMI] 23.0-23.9, adult; F41.9 Anxiety disorder, unspecified; F32.A Depression, unspecified
CPT/HCPCS: 36415; 74176; 80053; 81001; 85025; 96372; 99284; A9270; J1885; J2270; J7512

== ENCOUNTER 2024-07-27 06:55 | Emergency (ER) | payer BC, SELFPAY ==
[2024-07-27] VITALS (7 sets, daily range): BP systolic 100–111; BP diastolic 67–74; PULSE 76–102; RESP 18; TEMP 36.7; O2SAT 95–100
[2024-07-27] MEDS: KETOROLAC 30 MG/ML VIAL (*BKC) IV PUSH (07:47)
[2024-07-27] MEDS: diphenhydrAMINE HCl INJ 50 MG/ML VIAL IV PUSH (07:49)
[2024-07-27] MEDS: dexAMETHasone SOD PHOS INJ 10 MG/ML 1 ML VIAL IV PUSH (07:52)
[2024-07-27] MEDS: SODIUM CHLORIDE 0.9% IV 1,000 ML 999 ML IV CONT (07:54)
[2024-07-27] MEDS: PROCHLORPERAZINE EDISYLATE 10 MG/2 ML VIAL IV PUSH (07:54)
--- NOTE | 2024-07-27 08:16 | ED_ITS ---
HPI - General Adult General Chief complaint: Headache Stated complaint: Migraine x 5 days Time Seen by Provider: 07/27/24 07:15 History of Present Illness HPI narrative: patient is a 34-year-old female presents emergency department chief complaint of headache. Patient reports the last 5 days she has had headache reports she saw her neurologist had a Toradol shot and reports that her headache has returned. The patient reports this is not the worst headache of her life reports this is similar to her previous migraines but reports this when discontinues on. Related Data Allergies Allergy/AdvReac Type Severity Reaction Status Date / Time No Known Allergies Allergy Verified 07/27/24 06:57 Review of Systems Review of Systems: A 10 system review of systems was completed on the patient and is negative except for what is stated in the HPI. Nursing and ancillary documentation was reviewed. [facility] Past Medical History Medical History Anxiety Depression Hypercholesterolemia Overweight (BMI 25.0-29.9) Family History Family History Mother Hypertension Grandparent Diabetes mellitus Grandparent Pancreas cancer Grandparent Lung cancer Father Diverticulitis Social History Social History Smoking status: Never smoker Alcohol intake: current Alcohol use details: Rare- 1 or 2 per week Substance use: current Living arrangements: with family Spiritual care concerns: No Exam Narrative: GENERAL: Well-appearing, well-nourished, and in no acute distress. HEAD: Normocephalic, atraumatic. EYES: PERRLA and EOMI. ENT: Nares clear, no rhinorrhea or epistaxis. Mucous membranes moist. NECK: Supple. CHEST: Clear to auscultation. No respiratory distress. HEART: Regular rate and rhythm. No murmur heard. Normal peripheral pulses. ABDOMEN: Soft, nontender, nondistended, normal active bowel sounds. EXTREMITIES: Normal range of motion. No edema. SKIN: Warm, dry, no rash. NEURO: No focal deficits. Alert and oriented x3. PSYCH: Normal mood and affect. Course Vital Signs Vital signs: Vital Signs Temperature 36.7 C 07/27/24 06:59 Pulse Rate 102 H 07/27/24 06:59 Respiratory Rate 18 07/27/24 06:59 Blood Pressure 100/74 07/27/24 06:59 Pulse Oximetry 98 07/27/24 06:59 Oxygen Delivery Room Air 07/27/24 06:59 Temperature 36.7 C 07/27/24 06:59 Pulse Rate 87 07/27/24 07:59 Respiratory Rate 18 07/27/24 07:59 Blood Pressure 111/71 07/27/24 07:59 Pulse Oximetry 100 07/27/24 07:59 Oxygen Delivery Room Air 07/27/24 06:59 Medical Decision Making MDM Narrative Medical decision making narrative: Differential diagnosis includes tension headache, migraine headache patient shows no signs of altered mental status no signs of focal neurological deficits Vital Signs Vital Signs: Vital Signs Temperature 36.7 C 07/27/24 06:59 Pulse Rate 102 H 07/27/24 06:59 Respiratory Rate 18 07/27/24 06:59 Blood Pressure 100/74 07/27/24 06:59 Pulse Oximetry 98 07/27/24 06:59 Oxygen Delivery Room Air 07/27/24 06:59 Temperature 36.7 C 07/27/24 06:59 Pulse Rate 87 07/27/24 07:59 Respiratory Rate 18 07/27/24 07:59 Blood Pressure 111/71 07/27/24 07:59 Pulse Oximetry 100 07/27/24 07:59 Oxygen Delivery Room Air 07/27/24 06:59 Discharge Plan Discharge Clinical Impression: Migraine Patient Disposition: Home, Self-Care Condition: Stable Instructions: Antibiotic Form, Migraine Headache (ED) Prescriptions: No Action cyclobenzaprine 10 mg tablet 10 mg PO TID PRN (Reason: muscle spasm) Qty: 14 0RF hydrocodone-acetaminophen 5-325 mg tablet 1 tablet PO Q6H PRN (Reason: pain) Qty: 20 0RF prednisone 50 mg tablet 50 mg PO DAILY Qty: 4 0RF ondansetron 4 mg tablet,disintegrating 4 mg PO Q8H PRN (Reason: nausea and vomiting) Qty: 20 0RF fluoxetine 40 mg capsule 40 mg PO DAILY Qty: 30 0RF bupropion HCl [Wellbutrin XL] 150 mg tablet extended release 24 hr 150 mg PO QAM Qty: 30 0RF ferrous sulfate 325 mg (65 mg iron) tablet 325 mg PO DAILY Qty: 30 0RF ibuprofen 600 mg tablet 600 mg PO Q6H PRN (Reason: cramps) Qty: 30 0RF hydrocodone-acetaminophen 5-325 mg tablet 1 - 2 tablet PO Q6H Qty: 30 0RF Follow-up/Referrals: Coleen,MD Parisa [Primary Care Provider] - Time of Disposition: 08:42
[2024-07-27] MEDS: MAGNESIUM SULF 1 GM/D5W 100 ML 1 GM/100 ML BAG IVPB (08:20)
== END 2024-07-27 09:24 | disposition home or self-care (01) ==
PROVIDERS: Emergency Provider Emergency Medicine; PCP Internal Medicine
DX: G43.909 Migraine, unspecified, not intractable, without status migrainosus (principal)
CPT/HCPCS: 96365; 96375; 99284; J0780; J1100; J1200; J1885; J3475; J7030

== ENCOUNTER 2025-07-03 16:38 | Emergency (ER) | payer BC, SELFPAY ==
[2025-07-03 16:52] VITALS: BP 105/74; PULSE 85; RESP 16; TEMP 36.8; O2SAT 99
--- OUTSIDE RECORDS SUMMARY | 2025-07-03 17:49 | XMS_ITS | Encounter Summary ---
Author Organization [facility] Address [address] [place] [address] Care Team Providers Care Photolith Operator Name Role Phone Parisa Horne MD Primary Care Provider [phone] Encounter Details Date Type Department Care Team (Latest Contact Info) Description 01/09/2025 Location Based [employer] Message Enc [facility] Multispecialty Care - [place] 1188 [facility] 157 [address] [place], [place] [phone] Parisa Horne MD 1188 [facility] 157 [place], [place] [phone] Weight loss assistance while on [employer] Social History Tobacco Use Types Packs/Day Years Used Date Smoking Tobacco: Never Passive Smoke Exposure: Never Smokeless Tobacco: Never Comments:Counseled by Dr. Catherine sparrow. Alcohol Use Standard Drinks/Week Comments Yes 1.7 (1 standard drink = 0.6 oz p ure alcohol) Typically 3-4 drinks a month AUDIT-C Answer Date Recorded Q1: How often do you have a drink containing alcohol? 4 or more times a week 11/01/2023 Q2: How many drinks containi ng alcohol do you have on a typical day when you are drinking? 1 or 2 Q3: How often do you have si x or more drinks on one occasion? Never 11/01/2023 PHQ-2 Answer Date Recorded Patient Health Questionnaire-2 Score 2 11/26/2024 Comments No Sex and Gender Information Value Date Recorded Sex Assigned at Female 11/26/2024 3:32 PM CDT Legal Sex Female 9:35 AM KNITTING MACHINE OPERATOR AUTOMATIC Gender Identity Female 11/26/2024 3:32 PM CDT Sexual Orientation Straight 11/26/2024 3: 32 PM CDT documented as of this encounter Plan of Treatment Upcoming Encounters Date Type Department Care Team (Late st Contact Info) Description 07/11/2025 10:20 AM CDT Office Visit [facility] - [address], [address] [place] [phone] Marcio Lo MD 3 [place] [address] 07/17/2025 10:20 AM CDT Office Visit [facility] - [place] [address] [address] [place] [address] [place] [address] [place] [address] 157 [place] [address] 08/07/2025 10:20 AM KNITTING MACHINE OPERATOR AUTOMATIC Office Visit [facility] - [address], [address] [place] [phone] Marcoi Lo MD 3 [place] [address] 10/02/2025 10:00 AM KNITTING MACHINE OPERATOR AUTOMATIC Office Visit [facility] - [address], [address] [place] [address] Marcio Lo MD 3 [place] [address] documented as of this encounter Visit Diagnoses Not on filedocumented in this encounter Additional Health Concerns Assessment Noted Time PHQ-9 Depression Total Score: 15 025 4:15 PM CDT documented as of this encounter Care Teams Photolith Operator Relationship Specialty Start Date End Date Parisa Horne MD [address] [address] PCP - General INTERNAL MEDICINE 09/26/23 documented as of this encounter
--- OUTSIDE RECORDS SUMMARY | 2025-07-03 17:49 | XMS_ITS | Encounter Summary ---
Author Organization [facility] Address [address] [place] [address] Care Team Providers Care Medicaid Specialist Name Role Phone Parisa Horne MD Primary Care Provider [phone] Encounter Details Date Type Department Care Team (Late st Contact Info) Description 03/20/2024 MyChart Message Enc [facility] Medical Group Multispecialty Care - [place] [address] [place] [address] [address] [place], [place] [phone] [place] [address] [place] [address] 157 [place], [place] [phone] Vital signs Social History Tobacco Use Types Packs/Day Years [...] Date Recorded Patient Health Questionnaire-2 Score 2 03/20/2024 Comments No Sex and Gender Information Value Date Recorded Sex Assigned at Female 11/26/2024 3:32 PM CDT Legal Sex Female 9:35 AM BACK JOINER Gender Identity Female 11/26/2024 3:32 PM CDT Sexual Orientation Straight 11/26/2024 3: 32 PM CDT documented as of this encounter Functional Status * Over the past 2 weeks, how often have you been bothered by any of the following problems? Question Answer Date of Assessment Author Status Little interest or pleasure in doing things Several days 03/20/2024 3:43 PM CDT Carolyn Pollard MA Active Feeling down, depressed, or hopeless Several days 03/20/2024 3:43 PM CDT Nika Pollard MA Active Patient Health Questionnaire-2 Score 2 03/20/2024 3:43 PM CDT Carolyn Pollard MA Active * Question Answer Date of Assessment Author Status Trouble falling or staying asleep, or sleeping too much More than half the days 03/20/2024 3:43 PM CDT Carolyn Pollard MA Active Feeling tired or having little energy Nearly every day 03/20/2024 3:43 PM CDT Carolyn Pollard MA Active Poor appetite or overeating Several days 03/20/2024 3:43 PM CDT Carolyn Pollard MA Active Feeling bad about yourself - or that you are a failure or have let yourself or your family down Nearly every day 03/20/2024 3:43 PM CDT Carolyn Pollard MA Active Trouble concentrating on things, such as reading the newspaper or watching television More than half the days 03/20/2024 3:43 PM CDT Carolyn Pollard MA Active Moving or speaking so slowly that other people could have noticed? Or the opposite - being so fidgety or restless that you have been moving around a lot more than usual. Several days 03/20/2024 3:43 PM CDT Carolyn Pollard MA Active Thoughts that you would be better off or hurting yourself in some way Several days 03/20/2024 3:43 PM CDT Carolyn Pollard MA Active Patient Health Questionnaire-9 Score 15 03/20/2024 3:43 PM CDT Carolyn Pollard MA Active * Calculated C-SSRS Risk Score (Lifetime/Recent) Answer Date of Assessment Author Status No Risk Indicated 03/20/2024 5:25 PM CDT Parisa Horne MD Active * Over the last 2 weeks, how often have you been bothered by any of the following problems? Question Answer Date of Assessment Author Status Feeling nervous, anxious, or on edge 2 03/20/2024 3:43 PM CDT Carolyn Pollard MA Act julita Not being able to stop or control worrying 3 03/20/2024 3:43 PM CDT Carolyn Pollard MA Ac tive Worrying too much about different things 3 03/20/2024 3:43 PM CDT Carolyn Pollard MA Ac tive Trouble relaxing 2 03/20/2024 3:43 PM CDT Carolyn El MA Active Being so restless that it is hard to sit still 1 03/20/2024 3:43 PM CDT Carolyn Pollard M A Active Becoming easily annoyed or irritable 2 03/20/2024 3:43 PM CDT Carolyn Pollard MA Act julita Feeling afraid as if something awful might happen 2 03/20/2024 3:43 PM CDT Carolyn Pollard MA Act julita GUY-7 Total Score 15 03/20/2024 3:43 PM CDT Carolyn Bliss ms, MA Active * Coleman Suicide Severity Rating Scale (Screener/Recent Self-Report) Question Answer Date of Assessment Author Status 1. Wish to be (Past 1 Month) No 03/20/2024 5:25 PM CDT Parisa Horne MD Active 2. Non-Specific Active Suici brea Thoughts (Past 1 Month) No 03/20/2024 5:25 PM CDT Parisa Horne MD Active 6. Suicidal Behavior (Lifetime) No 03/20/2024 5:25 PM WILLIAMT Parisa Horne MD Active documented as of this encounter Plan of Treatment Upcoming Encounters Date Type Department Care Team (Late st Contact Info) Description 07/11/2025 10:20 AM CDT Office Visit [facility] Medical [facility] Multispecialty Care - [facility] 3 [facility], [address] [place] [address] Marcio Lo MD 3 [place] [address] 07/17/2025 10:20 AM CDT Office Visit [facility] Multispecialty Care - [place] [address] [address] [place] [address] Parisa Horne MD 1188 [facility] 157 [place] [address] 08/07/2025 10:20 AM BACK JOINER [facility] 3 [facility], [address] [place] [address] Marcio Lo MD 3 [place] [address] 10/02/2025 10:00 AM BACK JOINER [facility] 3 [facility], [address] [place] [address] Marcio Lo MD 3 [place] [address] documented as of this encounter Visit Diagnoses Not on filedocumented in this encounter Additional Health Concerns Assessment Noted Time PHQ-9 Depression Total Score: 15 03/20/ 024 3:43 PM CDT documented as of this encounter Care Teams Medicaid Specialist Relationship Specialty [place] [address] [place] [address] PCP - General INTERNAL MEDICINE 09/26/23 documented as of this encounter
--- OUTSIDE RECORDS SUMMARY | 2025-07-03 17:49 | XMS_ITS | Encounter Summary ---
Author Organization [facility] Address [address] [place] [address] Care Team Providers Care Healthcare Administrator Name Role Phone Parisa Horne MD Primary Care Provider [phone] Encounter Details Date Type Department Care Team (Latest Contact Info) Description 04/02/2024 MyChart Message Enc [facility] Medical Group Multispecialty Care - [place] [address] [place] [address] [address] [place], [place] [phone] [place] [address] [place] [address] 157 [place] [address] Appointment on 05/11 Social History Tobacco Use Types Packs/Day Years [...] PM CDT Legal Sex Female 9:35 AM OUTSIDE SALES MANAGER Gender Identity Female 11/26/2024 3:32 PM CDT Sexual Orientation Straight 11/26/2024 3: 32 PM CDT documented as of this encounter Plan of Treatment Upcoming Encounters Date Type Department Care Team (Late st Contact Info) Description 07/11/2025 10:20 AM CDT Office Visit [facility] 3 [facility], [address] [place] [address] Marcio Lo MD 3 [place] [address] 07/17/2025 10:20 AM CDT Office Visit [facility] - [place] [address] [address] [place] [address] Parisa Horne MD [address] [place] [address] 157 [place] [address] 08/07/2025 10:20 AM OUTSIDE SALES MANAGER Office Visit [facility] 3 [facility], [address] [place] [address] Marcio Lo MD 3 [place] [address] 10/02/2025 10:00 AM OUTSIDE SALES MANAGER Office Visit [facility] 3 [facility], [address] [place] [address] Marcio Lo MD 3 [place] [address] documented as of this encounter Visit Diagnoses Not on filedocumented in this encounter Additional Health Concerns Assessment Noted Time PHQ-9 Depression Total Score: 15 024 3:43 PM CDT documented as of this encounter Care Teams Healthcare Administrator Relationship Specialty Start Date End Date Parisa Horne MD [address] [address] PCP - General INTERNAL MEDICINE 09/26/23 documented as of this encounter
--- OUTSIDE RECORDS SUMMARY | 2025-07-03 17:49 | XMS_ITS | Encounter Summary ---
Author Organization [facility] Address [address] [place] [address] Care Team Providers Care Basketball Commentator Name Role Phone Parisa Horne MD Primary Care Provider [phone] Encounter Details Date Type Department Care Team (Late Contact Info) Description 11/02/2023 [employer] Message Enc [address] [place], [place] [phone] [employer], [facility] Provider Medication Social History Tobacco Use Types Packs/Day Years Used Date Smoking Tobacco: Never Passive Smoke Exposure: Never Smokeless Tobacco: Never AUDIT-C Answer Date Recorded Q1: How often [...] Answer Date Recorded Patient Health Questionnaire-2 Score 4 11/01/2023 Comments No Sex and Gender Information Value Date Recorded Sex Assigned at Female 11/26/2024 3:32 PM CDT Legal Sex Female 9:35 AM PIPED BUTTONHOLE MACHINE OPERATOR Gender Identity Female 11/26/2024 3:32 PM CDT Sexual Orientation Straight 11/26/2024 3: 32 PM CDT documented as of this encounter Plan of Treatment Upcoming Encounters Date Type Department Care Team (Late Contact Info) Description 07/11/2025 10:20 AM CDT [facility] 3 [facility], [address] [place] [address] Marcio Lo MD 3 [place] [address] 07/17/2025 10:20 AM CDT [facility] - [address] [place] [address] Parisa Horne MD [address] [place] [id number] 08/07/2025 10:20 AM PIPED BUTTONHOLE MACHINE OPERATOR [facility] 3 [facility], [address] [place] [address] Marcio Lo MD 3 [place] [address] 10/02/2025 10:00 AM PIPED BUTTONHOLE MACHINE OPERATOR [facility] 3 [facility], [address] [place] [address] Marcio Lo MD 3 [place] [address] documented as of this encounter Visit Diagnoses Not on filedocumented in this encounter Additional Health Concerns Assessment Noted Time PHQ-9 Depression Total Score: 20 024 11:50 AM PIPED BUTTONHOLE MACHINE OPERATOR documented as of this encounter Care Teams Basketball Commentator Relationship Specialty Start Date End Date Parisa Horne MD [address] [place] [phone] PCP - General INTERNAL MEDICINE 09/26/23 documented as of this encounter
--- OUTSIDE RECORDS SUMMARY | 2025-07-03 17:49 | XMS_ITS | Encounter Summary ---
Author Organization [facility] Address [address] [place] [address] Care Team Providers Care Noise Tester Name Role Phone Parisa Horne MD Primary Care Provider [phone] Encounter Details Date Type Department Care Team (Latest Contact Info) Description 02/22/2024 MyChart Message Enc [facility] Medical [facility] Multispecialty Care - [place] [address] [place] [address] [address] [place], [place] [phone] [place] [address] [place] [address] 157 [place], [place] [phone] Issue with referral Social History Tobacco Use Types Packs/Day Years [...] Date Recorded Patient Health Questionnaire-2 Score 2 02/14/2024 Comments No Sex and Gender Information Value Date Recorded Sex Assigned at Female 11/26/2024 3:32 PM CDT Legal Sex Female 9:35 AM SANFORIZER Gender Identity Female 11/26/2024 3:32 PM CDT Sexual Orientation Straight 11/26/2024 3: 32 PM CDT documented as of this encounter Plan of Treatment Upcoming Encounters Date Type Department Care Team (Late st Contact Info) Description 07/11/2025 10:20 AM CDT Office Visit [facility] 3 [facility], [address] [place] [address] Marcio Lo MD 3 [place] [address] 07/17/2025 10:20 AM CDT Office Visit [facility] - [place] [address] [address] [place] [address] [place] [address] [place] [address] [address] [place] [address] 08/07/2025 10:20 AM SANFORIZER Office Visit [facility] 3 [facility], [address] [place] [address] Marcio Lo MD 3 [place] [address] 10/02/2025 10:00 AM SANFORIZER Office Visit [facility] 3 [facility], [address] [place] [address] Marcio Lo MD 3 [place] [address] documented as of this encounter Visit Diagnoses Not on filedocumented in this encounter Additional Health Concerns Assessment Noted Time PHQ-9 Depression Total Score: 17 024 11:44 AM CDT documented as of this encounter Care Teams Noise Tester Relationship Specialty Start Date End Date Parisa Horne MD 1188 [facility] 157 [place] [address] PCP - General INTERNAL MEDICINE 09/26/23 documented as of this encounter
--- OUTSIDE RECORDS SUMMARY | 2025-07-03 17:49 | XMS_ITS | Encounter Summary ---
Author Organization [facility] Address [address] [place] [address] Care Team Providers Care Cutter Out Name Role Phone Parsia Horne MD Primary Care Provider [phone] Encounter Details Date Type Department Care Team (Latest Contact Info) Description 11/30/2023 [employer] Message Enc [facility] Medical Group Multispecialty Care - [facility] 3 [facility], [address] [place] [address] Marcio Lo MD 3 [place] [address] Persistent migraines Social History Tobacco Use Types Packs/Day Years Used Date Smoking Tobacco: Never Passive Smoke Exposure: Never Smokeless Tobacco: Never Alcohol Use Standard Drinks/Week Comments Yes 1.7 [...] PM CDT Legal Sex Female 9:35 AM TILE HELPER Gender Identity Female 11/26/2024 3:32 PM CDT Sexual Orientation Straight 11/26/2024 3: 32 PM CDT documented as of this encounter Plan of Treatment Upcoming Encounters Date Type Department Care Team (Late st Contact Info) Description 07/11/2025 10:20 AM CDT Office Visit [facility] - [address], [address] [place] [address] Marcio Lo MD 3 [place] [address] 07/17/2025 10:20 AM CDT Office Visit [facility] - [place] [address] [address] [place] [address] Parisa Horne MD [address] [place] [address] 157 [place] [address] 08/07/2025 10:20 AM TILE HELPER Office Visit [facility] - [address], [address] [place] [address] Marcio Lo MD 3 [place] [address] 10/02/2025 10:00 AM TILE HELPER Office Visit [facility] - [address], [address] [place] [address] Marcio Lo MD 3 [place] [address] documented as of this encounter Visit Diagnoses Not on filedocumented in this encounter Additional Health Concerns Assessment Noted Time PHQ-9 Depression Total Score: 20 024 11:50 AM TILE HELPER documented as of this encounter Care Teams Cutter Out Relationship Specialty Start Date End Date Parisa Horne MD [address] [address] PCP - General INTERNAL MEDICINE 09/26/23 documented as of this encounter
--- OUTSIDE RECORDS SUMMARY | 2025-07-03 17:49 | XMS_ITS | Encounter Summary ---
Author Organization [facility] Address [address] [place] [address] Care Team Providers Care Cloth Examiner Name Role Phone Parisa Horne MD Primary Care Provider [phone] Reason for Visit * Reason Onset Date Comments Information 02/29/2024 Encounter Details Date Type Department Care Team (Latest Contact Info) Description 02/29/2024 [employer] Message Enc [facility] Medical Group Multispecialty Care - [place] [address] [address] [place] [address] Parisa Horne MD [address] [place] [address] 157 [place] [address] [employer] Social History Tobacco Use Types Packs/Day Years [...] PM CDT Legal Sex Female 9:35 AM OIL PROGRAM COMPLIANCE SPECIALIST Gender Identity Female 11/26/2024 3:32 PM CDT Sexual Orientation Straight 11/26/2024 3: 32 PM CDT documented as of this encounter Progress Notes * Carolyn Pollard MA - 02/29/2024 4:17 PM CDT [employer] from [employer] (phone:[phone]) states that pt would have to pay then be reimbursed. Spoke to pt she is okay with that. Faxed information sheet to [employer] office. 02/29/2024. Fax number: [phone]. Artis states they handle prior auths. documented in this encounter Plan of Treatment Upcoming Encounters Date Type Department Care Team (Late st Contact Info) Description 07/11/2025 10:20 AM CDT Office Visit [facility] [address] [facility], [address] [place] [address] Marcio Lo MD [address] [place] [address] 07/17/2025 10:20 AM CDT [facility] - [place] [address] [address] [place] [address] Parisa Horne MD [address] [place] [address] 157 [place] [address] 08/07/2025 10:20 AM OIL PROGRAM COMPLIANCE SPECIALIST Office Visit [facility] 3 [facility], [address] [place] [address] Marcio Lo MD 3 [place] [address] 10/02/2025 10:00 AM OIL PROGRAM COMPLIANCE SPECIALIST Office Visit [facility] Medical Group Multispecialty Care - [facility] 3 [facility], [address] [place] [address] Marcio Lo MD 3 [place] [address] documented as of this encounter Visit Diagnoses Not on filedocumented in this encounter Additional Health Concerns Assessment Noted Time PHQ-9 Depression Total Score: 17 024 11:44 AM CDT documented as of this encounter Care Teams Cloth Examiner Relationship Specialty Start Date End Date Parisa Horne MD [address] [address] PCP - General INTERNAL MEDICINE 09/26/23 documented as of this encounter
--- OUTSIDE RECORDS SUMMARY | 2025-07-03 17:49 | XMS_ITS | Encounter Summary ---
Author Organization [facility] Address [address] [place] [address] Care Team Providers Care First Sampler Name Role Phone Parisa Horne MD Primary Care Provider [phone] Encounter Details Date Type Department Care Team (Late Contact Info) Description 11/09/2023 [employer] Message Enc [address] [place], [place] [phone] [employer], [facility] Provider Medication Social History Tobacco Use [...] PM CDT Legal Sex Female 9:35 AM SUPERVISOR INSPECTING Gender Identity Female 11/26/2024 3:32 PM CDT Sexual Orientation Straight 11/26/2024 3: 32 PM CDT documented as of this encounter Plan of Treatment Upcoming Encounters Date Type Department Care Team (Late Contact Info) Description 07/11/2025 10:20 AM CDT [facility] 3 [facility], [address] [place] [address] Marcio Lo MD 3 [place] [address] 07/17/2025 10:20 AM CDT [facility] - [address] [place] [address] Parisa Horne MD [address] [place] [id number] 08/07/2025 10:20 AM SUPERVISOR INSPECTING [facility] 3 [facility], [address] [place] [address] Marcio Lo MD 3 [place] [address] 10/02/2025 10:00 AM SUPERVISOR INSPECTING [facility] 3 [facility], [address] [place] [address] Marcio Lo MD 3 [place] [address] documented as of this encounter Visit Diagnoses Not on filedocumented in this encounter Additional Health Concerns Assessment Noted Time PHQ-9 Depression Total Score: 20 024 11:50 AM SUPERVISOR INSPECTING documented as of this encounter Care Teams First Sampler Relationship Specialty Start Date End Date Parisa Horne MD [address] [place] [id number] PCP - General INTERNAL MEDICINE 09/26/23 documented as of this encounter
--- OUTSIDE RECORDS SUMMARY | 2025-07-03 17:49 | XMS_ITS | Encounter Summary ---
Author Organization [facility] Address [address] [place] [address] Care Team Providers Care Elevator Builder Name Role Phone Parisa Horne MD Primary Care Provider [phone] Encounter Details Date Type Department Care Team (Late st Contact Info) Description 12/02/2023 Neurala Message Enc [facility] Medical Group Multispecialty Care - [address] [place], [place] [phone] [facility] Provider [employer] Social History Tobacco Use Types Packs/Day Years [...] PM CDT Legal Sex Female 9:35 AM OFFICE EMPLOYEE Gender Identity Female 11/26/2024 3:32 PM CDT Sexual Orientation Straight 11/26/2024 3: 32 PM CDT documented as of this encounter Plan of Treatment Upcoming Encounters Date Type Department Care Team (Late st Contact Info) Description 07/11/2025 10:20 AM CDT [facility] - [facility] 3 [facility], [address] [place] [address] Marcio Lo MD 3 [place] [address] 07/17/2025 10:20 AM CDT [facility] Emergency Department - [place] [address] [address] [place], [place] [phone] [place] [address] [place] [address] 157 [place] [address] 08/07/2025 10:20 AM OFFICE EMPLOYEE [facility] Emergency [facility] - [facility] 3 [facility], [address] [place] [address] Marcio Lo MD [address] [place] [address] 10/02/2025 10:00 AM OFFICE EMPLOYEE [facility] Emergency [facility] - [facility] 3 [facility], [address] [place] [address] Marcio Lo MD [address] [place] [address] documented as of this encounter Visit Diagnoses Not on filedocumented in this encounter Additional Health Concerns Assessment Noted Time PHQ-9 Depression Total Score: 20 024 11:50 AM OFFICE EMPLOYEE documented as of this encounter Care Teams Elevator Builder Relationship Specialty Start Date End Date Parisa Horne MD [address] [address] PCP - General INTERNAL MEDICINE 09/26/23 documented as of this encounter
--- OUTSIDE RECORDS SUMMARY | 2025-07-03 17:49 | XMS_ITS | Encounter Summary ---
Author Organization [facility] Address [address] [place] [address] Care Team Providers Care Computer Science Teacher Name Role Phone Parisa Horne MD Primary Care Provider [phone] Encounter Details Date Type Department Care Team (Latest Contact Info) Description 03/12/2025 MyChart Message Enc [facility] Medical Group Multispecialty Care - [facility] 3 [facility], [address] [place] [address] Marcio Lo MD 3 [place] [address] [employer] $85 a month Social History Tobacco Use Types Packs/Day Years [...] Date Recorded Patient Health Questionnaire-2 Score 2 01/16/2025 Comments No Sex and Gender Information Value Date Recorded Sex Assigned at Female 11/26/2024 3:32 PM CDT Legal Sex Female 9:35 AM INPATIENT CARE MANAGER RN Gender Identity Female 11/26/2024 3:32 PM CDT Sexual Orientation Straight 11/26/2024 3: 32 PM CDT documented as of this encounter Progress Notes * Ramin Art MA - 03/13/2025 10:31 AM CDT Telephoned pt. SHAUNA on to contact office are review message on Jovie documented in this encounter Plan of Treatment Upcoming Encounters Date Type Department Care Team (Late st Contact Info) Description 07/11/2025 10:20 AM CDT Office Visit [facility] - [address], [address] [place] [phone] Marcio Lo MD 3 [place], [place] [address] 07/17/2025 10:20 AM CDT [facility] - [place] [address] [address] [address] [place] [address] Parisa Horne MD [address] [place] [address] 157 [place] [address] 08/07/2025 10:20 AM INPATIENT CARE MANAGER RN [facility] - [facility] 3 [facility], [address] [place] [address] Marcio Lo MD 3 [place] [address] 10/02/2025 10:00 AM INPATIENT CARE MANAGER RN Office Visit [facility] - [facility] 3 [facility], [address] [place] [address] Marcio Lo MD 3 [place] [address] documented as of this encounter Visit Diagnoses Not on filedocumented in this encounter Additional Health Concerns Assessment Noted Time PHQ-9 Depression Total Score: 11 01/16/ 025 10:10 AM CDT documented as of this encounter Care Teams Computer Science Teacher Relationship Specialty Start Date End Date Parisa Horne MD [address] [facility] 157 [place] [address] PCP - General INTERNAL MEDICINE 09/26/23 documented as of this encounter
--- OUTSIDE RECORDS SUMMARY | 2025-07-03 17:49 | XMS_ITS | Clinical Summary ---
Author Organization [facility] [address] Address [address] [place] [address] Care Team Providers Care Windsmith Name Role Phone Unknown, Notinfile Primary Care Provider Unavail able Allergies Active Allergy Reactions Criticality Noted Date Comments Propranolol Other (See comments) Low 02/14/2024 lightheadedness Topiramate Other (See comments) Low 12/20/2023 Suicidal and worsening of her depression Medications DULoxetine DR (CYMBALTA) 30 mg capsule Take by mouth daily 02/24/2023 Active SUMAtriptan (IMITREX) 100 mg tablet TAKE 1 TAB ONSET OF MIGRAINE NEEDED EVERY 12 HOURS 03/01/2023 Active buPROPion XL (WELLBUTRIN XL) 150 mg 24 hr tablet Take 1 tablet (150 mg total) by mouth daily Active DULoxetine DR (CYMBALTA) 60 mg capsule Take by mouth daily 04/21/2023 Active Active Problems No known active problems Social History Tobacco Use Types Packs/Day Years Used Date Smoking Tobacco: Never Passive Smoke Exposure: Never Smokeless Tobacco: Never Comments Unknown Sex and Gender Information Value Date Recorded Sex Assigned at Not on file Legal Sex Female 1:21 PM LEARNING ADMINISTRATOR Gender Identity Not on file Sexual Orientation Not on file Obstetrics History Last Filed Vital Signs Vital Sign Reading Time Taken Comments Blood Pressure 96/67 12/15/2024 5:39 PM CDT Pulse 101 12/15/2024 5:39 PM CDT Temperature 37.1 C (98.8 F) 12/15/2024 5:39 PM CDT Respiratory Rate 16 12/15/2024 5:39 PM CDT Oxygen Saturation 99% 12/15/2024 5:39 PM CDT Inhaled Oxygen Concentration - - Weight 83.9 kg (185 lb) 12/15/2024 5:39 PM CDT Height 175.3 cm (5' 9) 12/15/2024 5:39 PM CDT Body Mass Index 27.32 12/15/2024 5:39 PM CDT Plan of Treatment Health Maintenance Due Date Last Done Comments Cervical Cancer Screening 1989 Depression Screening 1989 Hepatitis C Screening 1989 Varicella Vaccines (1 of 2 - 13+ 2-dose series) 2002 Hepatitis B Screening 2007 Regular Well Visit/Exam 18-64 2007 HPV Vaccines (1 - 3-dose SCDM series) 02/13/2016 Covid-19 Vaccine (3 - 2024- season) 2025 01/19/2021, 12/29/2020 Influenza Vaccine (#1) 2025 , 07/04/2023, 08/02/2022, Additional history exists DTaP/Tdap/Td Vaccine (4 - Td or Tdap) 11/22/2031 11/21/2021, 01/10/2019, 09/17/2016 Pneumococcal vaccine <65 Aged Out No longer eligible based on patient's age to complete this topic [facility] Care Teams Windsmith Relationship Specialty Start Date End Date Unknown, Notinfile PCP - General 04/06/23
--- OUTSIDE RECORDS SUMMARY | 2025-07-03 17:49 | XMS_ITS | Encounter Summary ---
Author Organization [facility] Address [address] [place] [address] Care Team Providers Care Health Tech Name Role Phone Parisa Horne MD Primary Care Provider [phone] Encounter Details Date Type Department Care Team (Latest Contact Info) Description 03/16/2024 Bandgap Engineeringhart Message Enc [facility] Medical Group Multispecialty Care - [place] [address] [facility] [address] [place], [place] [phone] Parisa Horne MD 1188 [facility] 157 [place], [place] [phone] Lightheadedness/diz ziness Social History Tobacco Use Types Packs/Day Years [...] PM CDT Legal Sex Female 9:35 AM CLERK SUPERVISOR Gender Identity Female 11/26/2024 3:32 PM CDT Sexual Orientation Straight 11/26/2024 3: 32 PM CDT documented as of this encounter Plan of Treatment Upcoming Encounters Date Type Department Care Team (Late st Contact Info) Description 07/11/2025 10:20 AM CDT Office Visit [facility] - [address], [address] [place] [phone] Marcio Lo MD 3 [place] [address] 07/17/2025 10:20 AM CDT Office Visit [facility] - [place] [address] [address] [place] [address] [place] [address] [place] [address] 157 [place] [address] 08/07/2025 10:20 AM CLERK SUPERVISOR Office Visit [facility] - [address], [address] [place] [phone] Marcio Lo MD 3 [place] [address] 10/02/2025 10:00 AM CLERK SUPERVISOR Office Visit [facility] - [address], [address] [place] [phone] Marcio Lo MD 3 [place] [address] documented as of this encounter Visit Diagnoses Not on filedocumented in this encounter Additional Health Concerns Assessment Noted Time PHQ-9 Depression Total Score: 17 024 11:44 AM CDT documented as of this encounter Care Teams Health Tech Relationship Specialty Start Date End Date Parisa Horne MD [address] [address] PCP - General INTERNAL MEDICINE 09/26/23 documented as of this encounter
--- OUTSIDE RECORDS SUMMARY | 2025-07-03 17:49 | XMS_ITS | Encounter Summary ---
Author Organization [facility] Address [address] [place] [address] Care Team Providers Care Talent Program Manager Name Role Phone Parisa Horne MD Primary Care Provider [phone] Encounter Details Date Type Department Care Team (Late st Contact Info) Description 04/24/2024 MyChart Message Enc [facility] Medical Group Multispecialty Care - [place] [address] [place] [address] [address] [place], [place] [phone] [place] [address] [place] [address] 157 [place], [place] [phone] Itching update Social History Tobacco Use Types Packs/Day Years [...] Answer Date Recorded Patient Health Questionnaire-2 Score 3 04/18/2024 Comments No Sex and Gender Information Value Date Recorded Sex Assigned at Female 11/26/2024 3:32 PM CDT Legal Sex Female 9:35 AM BLANK DRILLER Gender Identity Female 11/26/2024 3:32 PM CDT Sexual Orientation Straight 11/26/2024 3: 32 PM CDT documented as of this encounter Plan of Treatment Upcoming Encounters Date Type Department Care Team (Late st Contact Info) Description 07/11/2025 10:20 AM CDT Office Visit [facility] 3 [facility], [address] [place] [phone] Marcio Lo MD 3 [place] [address] 07/17/2025 10:20 AM CDT Office Visit [facility] - [place] [address] [address] [place] [address] Parisa Horne MD [address] [place] [address] [address] [place] [address] 08/07/2025 10:20 AM BLANK DRILLER Office Visit [facility] 3 [facility], [address] [place] [phone] Marcio Lo MD 3 [place] [address] 10/02/2025 10:00 AM BLANK DRILLER Office Visit [facility] 3 [facility], [address] [place] [address] Marcio Lo MD 3 [place] [address] documented as of this encounter Visit Diagnoses Not on filedocumented in this encounter Additional Health Concerns Assessment Noted Time PHQ-9 Depression Total Score: 15 024 3:43 PM CDT documented as of this encounter Care Teams Talent Program Manager Relationship Specialty Start Date End Date Parisa Horne MD [address] [address] PCP - General INTERNAL MEDICINE 09/26/23 documented as of this encounter
--- OUTSIDE RECORDS SUMMARY | 2025-07-03 17:49 | XMS_ITS | Clinical Summary ---
Author Organization [facility] Address [facility] [place] [address] Care Team Providers Care Kier Drier Name Role Phone Parisa Horne MD Primary Care Provider [phone] Allergies Active Allergy Reactions Criticality Noted Date Comments Propranolol Other (see comment) Low 02/14/2024 lightheadedness Topiramate Other (see comment) Low 12/20/2023 Suicidal and worsening of her depression Medications vitamin D3 (CHOLECALCIFEROL) 25 mcg tabletIndications :Vitamin D deficiency Take 1 tablet (25 mcg total) by mouth daily. 4 Active linaCLOtide (LINZESS) 290 MCG capsuleIndication s:Irritable bowel syndrome with constipation Take 1 capsule (290 mcg total) by mouth every morning before breakfast. Take on empty stomach at least 30 minutes prior to first meal of the day. Swallow whole. Do not open capsule or chew. 30 capsule 5 5 Active midodrine (PROAMATINE) 5 MG tabletIndications :Orthostatic hypotension Take half a tablet in the morning and half a tablet in the afternoon. 135 tablet 1 5 Active vitamin B-12 ([employer] VITAMIN B12) 1000 MCG tabletIndications :Vitamin B12 deficiency Take 1 tablet (1,000 mcg total) by mouth daily. 90 tablet 1 5 Active buPROPion XL (WELLBUTRIN XL) 300 MG 24 hr tabletIndications :Mild episode of recurrent major depressive disorder Take 1 tablet (300 mg total) by mouth every morning. 90 tablet 1 5 Active tirzepatide (ZEPBOUND) 2.5 MG/0.5ML injectionIndicati ons:Weight Loss Inject 2.5 mg into the skin once a week. Indications: Weight Loss 2 mL 5 Active ferrous sulfate, 65 mg elemental, 325 (65 FE) MG tabletIndications :Iron deficiency anemia, unspecified iron deficiency anemia type Take 1 tablet (325 mg total) by mouth daily with breakfast. 90 tablet 1 5 Active ubrogepant (UBRELVY) 100 MG tabletIndications :Migraine without aura, not intractable, without status migrainosus Take 1 tablet (100 mg total) by mouth 2 (two) times daily as needed. Max of 2 tablets (200 mg) in 24 hours 16 tablet 11 5 Active busPIRone (BUSPAR) 30 MG tabletIndications :GUY (generalized anxiety disorder) TAKE 1 TABLET (30 MG TOTAL) BY MOUTH DAILY. APPT NEEDED. 90 tablet 5 Active lamoTRIgine (LAMICTAL) 25 MG tablet Take 1 tablet (25 mg total) by mouth daily. 5 Active ARIPiprazole (ABILIFY) 5 MG tablet Take 1 tablet (5 mg total) by mouth daily. 5 Active venlafaxine (EFFEXOR) 37.5 MG tablet Take 1 tablet (37.5 mg total) by mouth 2 (two) times daily with meals. 5 Active erenumab-aooe (AIMOVIG) 140 mg/mL injection (autoinjector)Ind ications:Chronic migraine w/o aura w/o status migrainosus, not intractable INJECT 1 ML (140 MG TOTAL) INTO THE SKIN EVERY 30 (THIRTY) DAYS. 1 Pen 6 5 Active SUMAtriptan (IMITREX) 100 MG tabletIndications :Intractable chronic migraine with aura with status migrainosus TAKE 1 TABLET (100 MG TOTAL) BY MOUTH 2 (TWO) TIMES DAILY NEEDED FOR MIGRAINE. TAKE 1 TABLET AT ONSET OF SYMPTOMS, MAY TAKE 1 TABLET 2 HOURS LATER. MAX OF 2 TABLETS IN 24-HOUR PERIOD. 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 Chronic migraine without aur a without status migrainosus, not intractable 12/12/2023 Encounters Date Type Department Care Team Description 07/02/2025 Therapy [facility] - [address], [address] [place] [address] Marcio Lo MD 06/26/2025 Telephone [facility] - [address] [place] [phone] Marcio Lo MD Botox; Reschedule 06/19/2025 Orders Only [facility] - [address], [address] [place] [address] Marcio Lo MD 05/08/2025 10:00 AM CDT Office Visit [facility] - [address], [address] [place] [address] Marcio Lo MD Botox Procedure (botox 155 units (migraines) ) 05/08/2025 Scan Chatterous SRVCS Scanned, [facility] 05/08/2025 Travel 04/03/2025 10:00 AM CDT Office Visit [facility] - [address], [address] [place] [address] Marcio Lo MD Botox Procedure (Boxtox-Jaw dystonia 100 units 1st inj.) 04/03/2025 Scan Chatterous SRVCS Scanned, [facility] 04/03/2025 Travel from Last 3 Months Immunizations Immunization Administration Dates Next Due Fluzone (IIV3, Trivalent, 0. 5 ML Prefilled Syringe) 07/17/2024 Fluzone Intradermal Quad (IIV4) 07/16/2020 Influenza (Generic) 07/04/2023 Influenza Adult (Generic) 08/02/2022,,07/16/2020,2017 Tdap (Generic) 11/21/2021,01/10/2019,09/17/2016 Family History Medical History Relation Comments Depression Father Early Father Age 42, suicide Mental Health Father Cancer Maternal Grandfather Pancreatic Cancer, age 85 Hypertension Maternal Grandfather Kidney Disease Maternal Grandfather CRF, dialys is Diabetes Maternal Grandmother T1DM Hypertension Maternal Grandmother Hypertension Mother Genetic Alcohol Abuse Paternal Grandfather Depression Paternal Grandfather Mental Health Paternal Grandfather Cancer Paternal Grandmother Lung cancer Retardation/Learning Difficulties Son 1 Moderate-severe Autism Retardation/Learning Difficulties Son 2 Mild Autism Relation Status Comments Father Maternal Grandfather Maternal Grandmother Mother Paternal Grandfather Paternal Grandmother Son 1 Son 2 Social History Tobacco Use Types Packs/Day Years Used Date Smoking Tobacco: Never Passive Smoke Exposure: Never Smokeless Tobacco: Never Tobacco Cessation:Counseling Given: Yes Comments:Counseled by Dr. Horne. Alcohol Use Standard Drinks/Week Comments Yes 1.7 [...] PM CDT Legal Sex Female 9:35 AM STORE OPERATIONS SPECIALIST Gender Identity Female 11/26/2024 3:32 PM CDT Sexual Orientation Straight 11/26/2024 3: 32 PM CDT Last Filed Vital Signs Vital Sign Reading Time Taken Comments Blood Pressure 120/76 05/08/2025 10:10 AM CDT Pulse 74 05/08/2025 10:10 AM CDT Temperature 36.7 C (98 F) 04/03/2025 10:04 AM CDT Respiratory Rate 12 05/08/2025 10:10 AM CDT Oxygen Saturation 95% 05/08/2025 10:10 AM CDT Inhaled Oxygen Concentration - - Weight 80.7 kg (178 lb) 05/08/2025 10:10 AM CDT Height 175.3 cm (5' 9) 05/08/2025 10:10 AM CDT Body Mass Index 26.29 05/08/2025 10:10 AM CDT Plan of Treatment Upcoming Encounters Date Type Department Care Team (Late st Contact Info) Description 07/11/2025 10:20 AM CDT [facility] 3 [facility], [address] [place] [phone] Marcio Lo MD 3 [place] [address] 07/17/2025 10:20 AM CDT [facility] - [place] [address] [address] [place] [address] [place] [address] [place] [address] 157 [place] [address] 08/07/2025 10:20 AM STORE OPERATIONS SPECIALIST [facility] 3 [facility], [address] [place] [address] Marcio Lo MD 3 [place] [address] 10/02/2025 10:00 AM STORE OPERATIONS SPECIALIST [facility] 3 [facility], [address] [place] [phone] Marcio Lo MD 3 [place] [address] Health Maintenance Due Date Last Done Comments Cervical Cancer Screening Pap Smear (Age 30 to 64) Every 3 Years 1989 Hepatitis B Vaccines (1 of 3 - 19+ 3-dose series) 02/13/2008 HPV Vaccines (1 - 3-dose SCDM series) 02/13/2016 COVID-19 Vaccine (3 - season) 2025 01/19/2021, 12/29/2020 Influenza Adult (#1) 2025 07/17/2024, 07/04/2023, 08/02/2022, Additional history exists Annual Physical 01/16/2026 01/16/2025, 11/01/2023 Cervical Cancer Screening Pap with HPV Testing (Age 30 to 64) Every 5 Years 03/29/2029 03/29/2024 Cervical Cancer Screening with HPV 03/29/2029 DTaP, Tdap and Td Vaccines (4 - Td or Tdap) 11/22/2031 11/21/2021, 01/10/2019, 09/17/2016 Hepatitis C Completed 11/08/2023 PHQ-2 (Physician [place]) Completed 01/16/2025 Hepatitis A Vaccines Aged Out No long er eligible based on patient's age to complete this topic Meningococcal B Vaccine Aged Out No l onger eligible based on patient's age to complete this topic Meningococcal Vaccine Aged Out No fred rosa eligible based on patient's age to complete this topic Pneumococcal Vaccine: Pediatrics (0 to 5 Years) and At-Risk Patients (6 to 49 Years) Aged Out No longer eligible based on patient's age to complete this topic RSV Immunizations Under 20 Months Aged Out No longer eligible based on patient's age to complete this topic Procedures Procedure Name Priority Date/Time Associated Diagnosis Comments OUTSIDE CYTOPATH CERV/VAG INTERPRET (PAP) 03/29/2024 HEPATITIS C ANTIBODY Routine 11/08/2023 9:29 AM STORE OPERATIONS SPECIALIST Annual physical exam Establishing care with new doctor, encounter for General medical exam from Last 3 Months or Most Recently Relevant to Health Maintenance Results * PAP SMEAR WITH HPV (03/29/2024) 03/29/2024 [facility] Scanned SCANNING Final Resu lt * HEPATITIS C ANTIBODY (11/08/2023 9:29 AM STORE OPERATIONS SPECIALIST) HEPATITIS C AB NON-REACTI VE NON-REACT CHALINO 11/08/2023 7:11 PM STORE OPERATIONS SPECIALIST [facility] Comment: ANTIBODIES TO HCV NOT DETECTED. DOES NOT EXCLUDE THE POSSIBILITY OF EXPOSURE TO HCV. 11/08/2023 9:29 AM STORE OPERATIONS SPECIALIST Parisa Horne MD LABORATORY Final Result [facility] [address] [place] [address], [id number] from Last 3 Months or Most Recently Relevant to Health Maintenance Insurance [facility] Care Teams Kier Drier Relationship Specialty Start Date End Date Parisa Horne MD [address] [facility] [address] [place] [address] PCP - General INTERNAL MEDICINE 09/26/23
--- OUTSIDE RECORDS SUMMARY | 2025-07-03 17:49 | XMS_ITS | Encounter Summary ---
Author Organization [facility] Address [address] [place] [address] Care Team Providers Care Veterinarian Name Role Phone Parisa Horne MD Primary Care Provider [phone] Encounter Details Date Type Department Care Team (Late Contact Info) Description 11/04/2023 Updater Message Enc [address] [place], [place] [phone] Marie, [facility] Provider Neurology Social History Tobacco Use Types Packs/Day Years [...] PM CDT Legal Sex Female 9:35 AM MENAGERIE SUPERINTENDENT Gender Identity Female 11/26/2024 3:32 PM CDT Sexual Orientation Straight 11/26/2024 3: 32 PM CDT documented as of this encounter Plan of Treatment Upcoming Encounters Date Type Department Care Team (Late Contact Info) Description 07/11/2025 10:20 AM CDT [facility] [address] [facility], [address] [place] [address] Marcio Lo MD 3 [place] [address] 07/17/2025 10:20 AM CDT [facility] - [address] [place] [address] Parisa Horne MD [address] [place] [id number] 08/07/2025 10:20 AM MENAGERIE SUPERINTENDENT Office [facility] [address] [facility], [address] [place] [address] Marcio Lo MD 3 [place] [address] 10/02/2025 10:00 AM MENAGERIE SUPERINTENDENT [facility] - [facility] [address] [facility], [address] [place] [address] Marcio Lo MD 3 [place] [address] documented as of this encounter Visit Diagnoses Not on filedocumented in this encounter Additional Health Concerns Assessment Noted Time PHQ-9 Depression Total Score: 20 024 11:50 AM MENAGERIE SUPERINTENDENT documented as of this encounter Care Teams Veterinarian Relationship Specialty Start Date End Date Parisa Horne MD [address] [place] [address] [id number] PCP - General INTERNAL MEDICINE 09/26/23 documented as of this encounter
--- OUTSIDE RECORDS SUMMARY | 2025-07-03 17:49 | XMS_ITS | Encounter Summary ---
Author Organization [facility] Address [address] [place] [address] Care Team Providers Care Industrial Psychologist Name Role Phone Parisa Horne MD Primary Care Provider [phone] Encounter Details Date Type Department Care Team (Late st Contact Info) Description 11/17/2023 MyChart Message Enc [facility] Care - [place] [address] [place] [address] [address] [place], [place] [phone] [place] [address] [place] [address] 157 [place] [address] [facility] Social History Tobacco Use Types Packs/Day Years [...] PM CDT Legal Sex Female 9:35 AM WELL HEAD PUMPER Gender Identity Female 11/26/2024 3:32 PM CDT Sexual Orientation Straight 11/26/2024 3: 32 PM CDT documented as of this encounter Plan of Treatment Upcoming Encounters Date Type Department Care Team (Late st Contact Info) Description 07/11/2025 10:20 AM CDT Office Visit [facility] 3 [facility], [address] [place] [address] Marcio Lo MD 3 [place] [address] 07/17/2025 10:20 AM CDT Office Visit [facility] [place] [address] [address] [place] [address] [place] [address] [place] [address] [address] [place] [address] 08/07/2025 10:20 AM WELL HEAD PUMPER Office Visit [facility] 3 [facility], [address] [place] [address] Marcio Lo MD 3 [place] [address] 10/02/2025 10:00 AM WELL HEAD PUMPER Office Visit [facility] 3 [facility], [address] [place] [address] Marcio Lo MD 3 [place] [address] documented as of this encounter Visit Diagnoses Not on filedocumented in this encounter Additional Health Concerns Assessment Noted Time PHQ-9 Depression Total Score: 20 024 11:50 AM WELL HEAD PUMPER documented as of this encounter Care Teams Industrial Psychologist Relationship Specialty Start Date End Date Parisa Horne MD [address] [address] PCP - General INTERNAL MEDICINE 09/26/23 documented as of this encounter
--- OUTSIDE RECORDS SUMMARY | 2025-07-03 17:49 | XMS_ITS | Encounter Summary ---
Author Organization [facility] Address [address] [place] [address] Care Team Providers Care Value Stream Manager Name Role Phone Parisa Horne MD Primary Care Provider [phone] Encounter Details Date Type Department Care Team (Late st Contact Info) Description 12/29/2023 MyChart Message Enc [facility] Medical [facility]pecialty Care - [facility] 3 [facility], [address] [place] [address] Marcio Lo MD 3 [place] [address] [facility] Social History Tobacco Use Types Packs/Day Years [...] Date Recorded Patient Health Questionnaire-2 Score 4 12/20/2023 Comments No Sex and Gender Information Value Date Recorded Sex Assigned at Female 11/26/2024 3:32 PM CDT Legal Sex Female 9:35 AM ANIMAL PATHOLOGY TEACHER Gender Identity Female 11/26/2024 3:32 PM CDT Sexual Orientation Straight 11/26/2024 3: 32 PM CDT documented as of this encounter Plan of Treatment Upcoming Encounters Date Type Department Care Team (Late st Contact Info) Description 07/11/2025 10:20 AM CDT Office Visit [facility] - [address], [address] [place] [address] Marcio Lo MD 3 [place] [address] 07/17/2025 10:20 AM CDT Office [facility] - [place] [address] [address] [place] [address] [place] [address] [place] [address] 157 [place] [address] 08/07/2025 10:20 AM ANIMAL PATHOLOGY TEACHER Office Visit [facility] - [address], [address] [place] [address] Marcio Lo MD 3 [place] [address] 10/02/2025 10:00 AM ANIMAL PATHOLOGY TEACHER Office [facility] - [address], [address] [place] [address] Marcio Lo MD 3 [place] [address] documented as of this encounter Visit Diagnoses Not on filedocumented in this encounter Additional Health Concerns Assessment Noted Time PHQ-9 Depression Total Score: 17 024 11:44 AM CDT documented as of this encounter Care Teams Value Stream Manager Relationship Specialty Start Date End Date Parisa Horne MD [address] [address] PCP - General INTERNAL MEDICINE 09/26/23 documented as of this encounter
--- OUTSIDE RECORDS SUMMARY | 2025-07-03 17:49 | XMS_ITS | Encounter Summary ---
Author Organization [facility] Address [address] [place] [address] Care Team Providers Care Order Make Up Clerk Name Role Phone Parisa Horne MD Primary Care Provider [phone] Encounter Details Date Type Department Care Team (Latest Contact Info) Description 02/22/2024 iOpenerhart Message Enc [facility] Medical Group Multispecialty Care - [place] 1188 [facility] 157 [address] [place], [place] [phone] Parisa Horne MD 1188 [facility] 157 [place], [place] [phone] Temporary handicap parking pass Social History Tobacco Use Types Packs/Day Years [...] PM CDT Legal Sex Female 9:35 AM BOXING PROMOTER Gender Identity Female 11/26/2024 3:32 PM CDT Sexual Orientation Straight 11/26/2024 3: 32 PM CDT documented as of this encounter Plan of Treatment Upcoming Encounters Date Type Department Care Team (Late st Contact Info) Description 07/11/2025 10:20 AM CDT Office Visit [facility] 3 [facility], [address] [place] [address] Marcio Lo MD 3 [place] [address] 07/17/2025 10:20 AM CDT Office Visit [facility] - [place] [address] [address] [place] [address] Parisa Horne MD [address] [place] [address] 157 [place] [address] 08/07/2025 10:20 AM BOXING PROMOTER Office Visit [facility] 3 [facility], [address] [place] [address] Marcio Lo MD 3 [place] [address] 10/02/2025 10:00 AM BOXING PROMOTER Office Visit [facility] 3 [facility], [address] [place] [address] Marcio Lo MD 3 [place] [address] documented as of this encounter Visit Diagnoses Not on filedocumented in this encounter Additional Health Concerns Assessment Noted Time PHQ-9 Depression Total Score: 17 024 11:44 AM CDT documented as of this encounter Care Teams Order Make Up Clerk Relationship Specialty Start Date End Date Parisa Horne MD [address] [address] PCP - General INTERNAL MEDICINE 09/26/23 documented as of this encounter
--- OUTSIDE RECORDS SUMMARY | 2025-07-03 17:49 | XMS_ITS | Clinical Summary ---
Author Organization [email or web address] Address [address] [facility] [place] [address] Care Team Providers Care Claim Processing Specialist Name Role Phone Unavailable Primary Care Provider Unavailabl e Source Comments [email or web address],non-owned Affiliates and Associated Physician Practices is amultiple site organization consisting of ambulatory clinics and hospital sitesin [place], [place], [place] and [place]. This disclosure is being madepursuant to the Care Everywhere program and may not contain all information available regarding this patient. Last updated 18.[email or web address] Allergies No known active allergies Medications * Be aware that medications may not be up to date on this document. Alwaysverify current medications with the patient. No known medications Social History Tobacco Use Types Packs/Day Years Used Date Smoking Tobacco: Never Smokeless Tobacco: Never Alcohol Use Standard Drinks/Week Comments Yes 0 (1 standard drink = 0.6 oz pur e alcohol) socially Comments Unknown Sex and Gender Information Value Date Recorded Sex Assigned at Not on file Legal Sex Female 12:16 PM CDT Gender Identity Not on file Sexual Orientation Not on file Last Filed Vital Signs Vital Sign Reading Time Taken Comments Blood Pressure 109/66 07/13/2014 2:53 PM CDT Pulse 73 07/13/2014 2:53 PM CDT Temperature 37.6 C (99.6 F) 07/13/2014 2:53 PM CDT Respiratory Rate 20 07/13/2014 2:53 PM CDT Oxygen Saturation 100% 07/13/2014 2:53 PM CDT Inhaled Oxygen Concentration - - Weight 68 kg (150 lb) 07/13/2014 12:21 PM CDT Height 175.3 cm (5' 9.02) 07/13/2014 12:21 PM C DT Body Mass Index 22.14 07/13/2014 12:21 PM CDT Plan of Treatment Health Maintenance Due Date Last Done Comments HIV SCREENING 02/13/2004 HEPATITIS C SCREENING 02/08/2007 DTAP/TDAP/TD VACCINES (1 - Tdap) 02/13/2008 HEPATITIS B VACCINE (1 of 3 - 19+ 3-dose series) 02/13/2008 HPV VACCINE (1 - 3-dose SCDM series) 02/13/2016 DEPRESSION SCREENING 09/19/2024 COVID-19 VACCINE (1 - 2023-2 5 season) 2025 INFLUENZA VACCINE (#1) 2025 2, 09/02/2021 ZOSTER VACCINE (1 of 2) 2039 HIB VACCINE Aged Out No longer eligi ble based on patient's age to complete this topic MENINGOCOCCAL (Group B) VACCINE SHARED DECISION-MAKING Aged Out No longer eligible based on patient's age to complete this topic MENINGOCOCCAL GROUPS A/C/Y/W VACCINE Aged Out No longer eligible b ased on patient's age to complete this topic PNEUMOCOCCAL VACCINE Aged Out No long er eligible based on patient's age to complete this topic Insurance [facility] [employer] [facility] Address: [facility] [id number] [place] [address]
--- OUTSIDE RECORDS SUMMARY | 2025-07-03 17:49 | XMS_ITS | Encounter Summary ---
Author Organization [facility] Address [address] [place] [address] Care Team Providers Care Porter Baggage Name Role Phone Parisa Horne MD Primary Care Provider [phone] Encounter Details Date Type Department Care Team (Late st Contact Info) Description 10/10/2024 MyChart Message Enc [facility] Medical Group Multispecialty Care - [place] [address] [place] [address] [address] [place], [place] [phone] [place] [address] [place] [address] 157 [place], [place] [phone] Annual physical Social History Tobacco Use Types Packs/Day Years [...] Answer Date Recorded Patient Health Questionnaire-2 Score 0 07/26/2024 Comments No Sex and Gender Information Value Date Recorded Sex Assigned at Female 11/26/2024 3:32 PM CDT Legal Sex Female 9:35 AM [employer] Gender Identity Female 11/26/2024 3:32 PM CDT Sexual Orientation Straight 11/26/2024 3: 32 PM CDT documented as of this encounter Plan of Treatment Upcoming Encounters Date Type Department Care Team (Late st Contact Info) Description 07/11/2025 10:20 AM CDT Office Visit [facility] 3 [facility], [address] [place] [address] Marcio Lo MD 3 [place] [address] 07/17/2025 10:20 AM CDT Office Visit [facility] - [place] [address] [address] [place] [address] [place] [address] [place] [address] [address] [place] [address] 08/07/2025 10:20 AM [employer] Office Visit [facility] 3 [facility], [address] [place] [address] Marcio Lo MD 3 [place] [address] 10/02/2025 10:00 AM [employer] Office Visit [facility] 3 [facility], [address] [place] [address] Marcio Lo MD 3 [place] [address] documented as of this encounter Visit Diagnoses Not on filedocumented in this encounter Additional Health Concerns Assessment Noted Time PHQ-9 Depression Total Score: 15 024 10:33 AM CDT documented as of this encounter Care Teams Porter Baggage Relationship Specialty Start Date End Date Parisa Horne MD 1188 [facility] 157 [place] [address] PCP - General INTERNAL MEDICINE 09/26/23 documented as of this encounter
--- OUTSIDE RECORDS SUMMARY | 2025-07-03 17:49 | XMS_ITS | Encounter Summary ---
Author Organization [facility] Address [address] [place] [address] Care Team Providers Care Surface Ship Usw Supervisor Name Role Phone Parisa Horne MD Primary Care Provider [phone] Encounter Details Date Type Department Care Team (Late st Contact Info) Description 07/02/2025 Therapy Plan [facility] Medical [facility] - [facility] 3 [facility], [address] [place] [address] Marcio Lo MD 3 [place] [address] Social History Tobacco Use Types Packs/Day Years [...] PM CDT Legal Sex Female 9:35 AM WINTER INTERN Gender Identity Female 11/26/2024 3:32 PM CDT Sexual Orientation Straight 11/26/2024 3: 32 PM CDT documented as of this encounter Plan of Treatment Upcoming Encounters Date Type Department Care Team (Late st Contact Info) Description 07/11/2025 10:20 AM CDT Office Visit [facility] - [facility] 3 [facility], [address] [place] [address] Marcio Lo MD 3 [place] [address] 07/17/2025 10:20 AM CDT Office Visit [facility] - [place] [address] [address] [place] [address] Parisa Horne MD [address] [place] [address] 157 [place] [address] 08/07/2025 10:20 AM WINTER INTERN Office Visit [facility] - [facility] 3 [facility], [address] [place] [address] Marcio Lo MD 3 [place] [address] 10/02/2025 10:00 AM WINTER INTERN Office Visit [facility] - [facility] 3 [facility], [address] [place] [address] Marcio Lo MD 3 [place] [address] documented as of this encounter Visit Diagnoses Not on filedocumented in this encounter Additional Health Concerns Assessment Noted Time PHQ-9 Depression Total Score: 11 025 10:10 AM CDT documented as of this encounter Care Teams Surface Ship Usw Supervisor Relationship Specialty Start Date End Date Parisa Horne MD [address] [phone] PCP - General INTERNAL MEDICINE 09/26/23 documented as of this encounter
--- OUTSIDE RECORDS SUMMARY | 2025-07-03 17:49 | XMS_ITS | Encounter Summary ---
Author Organization [facility] Address [address] [place] [address] Care Team Providers Care Medical Support Specialist Name Role Phone Parisa Horne MD Primary Care Provider [phone] Encounter Details Date Type Department Care Team (Latest Contact Info) Description 01/22/2025 MyChart Message Enc [facility] Medical Group Multispecialty Care - [place] [address] [facility] [address] [place], [place] [address] Parisa Horne MD 1188 [facility] 157 [place], [place] [phone] Thoughts on persistent B12/vit D deficiency Social History Tobacco Use Types Packs/Day Years [...] PM CDT Legal Sex Female 9:35 AM CNA CAREGIVER Gender Identity Female 11/26/2024 3:32 PM CDT Sexual Orientation Straight 11/26/2024 3: 32 PM CDT documented as of this encounter Plan of Treatment Upcoming Encounters Date Type Department Care Team (Late st Contact Info) Description 07/11/2025 10:20 AM CDT Office Visit [facility] 3 [facility], [address] [place] [address] Marcio Lo MD 3 [place] [address] 07/17/2025 10:20 AM CDT Office Visit [facility] - [place] [address] [address] [place] [address] Parisa Horne MD [address] [place] [address] 157 [place] [address] 08/07/2025 10:20 AM CNA CAREGIVER Office Visit [facility] 3 [facility], [address] [place] [address] Marcio Lo MD 3 [place] [address] 10/02/2025 10:00 AM CNA CAREGIVER Office Visit [facility] 3 [facility], [address] [place] [address] Marcio Lo MD 3 [place] [address] documented as of this encounter Visit Diagnoses Not on filedocumented in this encounter Additional Health Concerns Assessment Noted Time PHQ-9 Depression Total Score: 11 01/16/ 025 10:10 AM CDT documented as of this encounter Care Teams Medical Support Specialist Relationship Specialty Start Date End Date Parisa Horne MD [address] [address] PCP - General INTERNAL MEDICINE 09/26/23 documented as of this encounter
--- OUTSIDE RECORDS SUMMARY | 2025-07-03 17:49 | XMS_ITS | Encounter Summary ---
Author Organization [facility] Address [address] [place] [address] Care Team Providers Care Industrial Controls Technician Name Role Phone Parisa Horne MD Primary Care Provider [phone] Encounter Details Date Type Department Care Team (Latest Contact Info) Description 02/16/2024 MyChart Message Enc [facility] Medical Group Multispecialty Care - [place] 1188 [facility] 157 [address] [place], [place] [phone] Parisa Horne MD 1188 [facility] 157 [place], [place] [phone] Potential broken right great toe Social History Tobacco Use Types Packs/Day Years [...] PM CDT Legal Sex Female 9:35 AM CATALYST SUPERVISOR Gender Identity Female 11/26/2024 3:32 PM CDT Sexual Orientation Straight 11/26/2024 3: 32 PM CDT documented as of this encounter Plan of Treatment Upcoming Encounters Date Type Department Care Team (Late st Contact Info) Description 07/11/2025 10:20 AM CDT Office Visit [facility] 3 [facility], [address] [place] [address] Marcio Lo MD 3 [place] [address] 07/17/2025 10:20 AM CDT Office Visit [facility] - [place] [address] [address] [place] [address] Parisa Horne MD [address] [place] [address] 157 [place] [address] 08/07/2025 10:20 AM CATALYST SUPERVISOR Office Visit [facility] 3 [facility], [address] [place] [address] Marcio Lo MD 3 [place] [address] 10/02/2025 10:00 AM CATALYST SUPERVISOR Office Visit [facility] 3 [facility], [address] [place] [address] Marcio Lo MD 3 [place] [address] documented as of this encounter Visit Diagnoses Not on filedocumented in this encounter Additional Health Concerns Assessment Noted Time PHQ-9 Depression Total Score: 17 024 11:44 AM CDT documented as of this encounter Care Teams Industrial Controls Technician Relationship Specialty Start Date End Date Parisa Horne MD [address] [address] PCP - General INTERNAL MEDICINE 09/26/23 documented as of this encounter
[2025-07-03 17:59] VITALS: BP 114/68; PULSE 65; RESP 18; O2SAT 100
[2025-07-03] MEDS: METOCLOPRAMIDE HCL INJ 10 MG/2 ML VIAL IV PUSH (18:00)
[2025-07-03] MEDS: ACETAMINOPHEN 500 MG TABLET 1000 MG PO (18:01)
[2025-07-03] MEDS: SODIUM CHLORIDE 0.9% IV 1,000 ML 999 ML IV CONT (18:03)
[2025-07-03] MEDS: KETOROLAC 30 MG/ML VIAL (*BKC) IV PUSH (18:05)
--- OUTSIDE RECORDS SUMMARY | 2025-07-03 18:09 | XMS_ITS | Encounter Summary ---
Author Organization [facility] Address [address] [place] [address] Care Team Providers Care Fireman Helper Name Role Phone Parisa Horne MD Primary Care Provider [phone] Encounter Details Date Type Department Care Team (Late st Contact Info) Description 12/29/2023 MyChart Message Enc [facility] Medical [facility] Mult[facility]pecialty Care - [facility] 3 [facility], [address] [place] [address] Marcio Lo MD 3 [place] [address] [facility] Social History Tobacco Use Types [...] PM CDT Legal Sex Female 9:35 AM COLLECTION ADVISOR Gender Identity Female 11/26/2024 3:32 PM CDT Sexual Orientation Straight 11/26/2024 3: 32 PM CDT documented as of this encounter Plan of Treatment Upcoming Encounters Date Type Department Care Team (Late st Contact Info) Description 07/11/2025 10:20 AM CDT Office Visit [facility] - [address], [address] [place] [address] Marcio Lo MD 3 [place] [address] 07/17/2025 10:20 AM CDT Office Visit [facility] - [place] [address] [address] [place] [address] [place] [address] [place] [address] 157 [place] [address] 08/07/2025 10:20 AM COLLECTION ADVISOR Office Visit [facility] - [address], [address] [place] [address] Marcio Lo MD 3 [place] [address] 10/02/2025 10:00 AM COLLECTION ADVISOR Office Visit [facility] - [address], [address] [place] [address] Marcio Lo MD 3 [place] [address] documented as of this encounter Visit Diagnoses Not on filedocumented in this encounter Additional Health Concerns Assessment Noted Time PHQ-9 Depression Total Score: 17 024 11:44 AM CDT documented as of this encounter Care Teams Fireman Helper Relationship Specialty Start Date End Date Parisa Horne MD [address] [address] PCP - General INTERNAL MEDICINE 09/26/23 documented as of this encounter
--- OUTSIDE RECORDS SUMMARY | 2025-07-03 18:09 | XMS_ITS | Clinical Summary ---
Author Organization [facility] [address] [place] Address [address] [place] [address] Care Team Providers Care Ob Gyn Physician Assistant Name Role Phone Unknown, Notinfile Primary Care [...] on file Legal Sex Female 1:21 PM SENIOR CENTER DIRECTOR Gender Identity Not on file Sexual Orientation [...] patient's age to complete this topic Insurance [employer] [employer] [facility] Care Teams Ob Gyn Physician Assistant Relationship Specialty Start Date End Date Unknown, Notinfile PCP - General 04/06/23
--- OUTSIDE RECORDS SUMMARY | 2025-07-03 18:09 | XMS_ITS | Encounter Summary ---
Author Organization [facility] Address [address] [place] [address] Care Team Providers Care Grocery Specialist Name Role Phone Parisa Horne MD Primary Care Provider [phone] Encounter Details Date Type Department Care Team (Latest Contact Info) Description 01/22/2025 MyChart Message Enc [facility] Medical Group Multispecialty Care - [place] 1188 [facility] 157 [address] [place], [place] [phone] Parisa Horne MD 1188 [facility] 157 [place], [place] [id number] Thoughts on persistent B12/vit D deficiency Social [...] CDT Legal Sex Female 9:35 AM SUPERVISOR WATERWORKS Gender Identity Female 11/26/2024 3:32 PM CDT Sexual Orientation Straight 11/26/2024 3: 32 PM CDT documented as of this encounter Plan of Treatment Upcoming Encounters Date Type Department Care Team (Late st Contact Info) Description 07/11/2025 10:20 AM CDT Office Visit [facility] 3 [facility], [address] [place] [address] Marcio Lo MD 3 [place] [address] 07/17/2025 10:20 AM CDT Office Visit [facility] [place] [address] [address] [place] [address] Parisa Horne MD [address] [place] [address] 157 [place] [address] 08/07/2025 10:20 AM SUPERVISOR WATERWORKS Office Visit [facility] 3 [facility], [address] [place] [address] Marcio Lo MD 3 [place] [address] 10/02/2025 10:00 AM SUPERVISOR WATERWORKS Office Visit [facility] 3 [facility], [address] [place] [address] Marcio Lo MD 3 [place] [address] documented as of this encounter Visit Diagnoses Not on filedocumented in this encounter Additional Health Concerns Assessment Noted Time PHQ-9 Depression Total Score: 11 01/16/ 025 10:10 AM CDT documented as of this encounter Care Teams Grocery Specialist Relationship Specialty Start Date End Date Parisa Horne MD [address] [address] PCP - General INTERNAL MEDICINE 09/26/23 documented as of this encounter
--- OUTSIDE RECORDS SUMMARY | 2025-07-03 18:09 | XMS_ITS | Encounter Summary ---
Author Organization [facility] Address [address] [place] [address] Care Team Providers Care Sales Merchandising Specialist Name Role Phone Parisa Horne MD Primary Care Provider [phone] Encounter Details Date Type Department Care Team (Late Contact Info) Description 11/09/2023 [employer] Message Enc [address] [place], [place] [id number] [employer], [facility] Provider Medication Social History Tobacco Use [...] PM CDT Legal Sex Female 9:35 AM AFRICAN HISTORY PROFESSOR Gender Identity Female 11/26/2024 3:32 PM CDT Sexual Orientation Straight 11/26/2024 3: 32 PM CDT documented as of this encounter Plan of Treatment Upcoming Encounters Date Type Department Care Team (Late Contact Info) Description 07/11/2025 10:20 AM CDT [facility] 3 [facility], [address] [place] [address] Marcio Lo MD 3 [place] [address] 07/17/2025 10:20 AM CDT [facility] - [address] [place] [address] Parisa Horne MD [address] [place] [phone] 08/07/2025 10:20 AM AFRICAN HISTORY PROFESSOR [facility] [place] [facility] 3 [facility], [address] [place] [address] Marcio Lo MD 3 [place] [address] 10/02/2025 10:00 AM AFRICAN HISTORY PROFESSOR [facility] [place] [facility] - [facility] 3 [facility], [address] [place] [address] Marcio Lo MD 3 [place] [address] documented as of this encounter Visit Diagnoses Not on filedocumented in this encounter Additional Health Concerns Assessment Noted Time PHQ-9 Depression Total Score: 20 024 11:50 AM AFRICAN HISTORY PROFESSOR documented as of this encounter Care Teams Sales Merchandising Specialist Relationship Specialty Start Date End Date Parisa Horne MD [address] [place] [address] [phone] PCP - General INTERNAL MEDICINE 09/26/23 documented as of this encounter
--- OUTSIDE RECORDS SUMMARY | 2025-07-03 18:09 | XMS_ITS | Encounter Summary ---
Author Organization [facility] Address [address] [place] [address] Care Team Providers Care Safety Spec Name Role Phone Parisa Horne MD Primary Care Provider [phone] Encounter Details Date Type Department Care Team (Late st Contact Info) Description 12/02/2023 [facility] Message Enc [facility] Medical Group Multispecialty Care - [address] [place], [place] [phone] [employer], [facility] Provider [employer] Social History Tobacco Use [...] PM CDT Legal Sex Female 9:35 AM DERMATOLOGY PHYSICIAN Gender Identity Female 11/26/2024 3:32 PM CDT Sexual Orientation Straight 11/26/2024 3: 32 PM CDT documented as of this encounter Plan of Treatment Upcoming Encounters Date Type Department Care Team (Late st Contact Info) Description 07/11/2025 10:20 AM CDT [facility] 3 [facility], [address] [place] [address] Marcio Lo MD 3 [place] [address] 07/17/2025 10:20 AM CDT [facility] - [place] [address] [address] [place], [place] [address] [place] [address] [place] [address] 157 [place] [address] 08/07/2025 10:20 AM DERMATOLOGY PHYSICIAN [facility] 3 [facility], [address] [place] [address] Marcio Lo MD [address] [place] [address] 10/02/2025 10:00 AM DERMATOLOGY PHYSICIAN [facility] 3 [facility], [address] [place] [address] Marcio Lo MD [address] [place] [address] documented as of this encounter Visit Diagnoses Not on filedocumented in this encounter Additional Health Concerns Assessment Noted Time PHQ-9 Depression Total Score: 20 024 11:50 AM DERMATOLOGY PHYSICIAN documented as of this encounter Care Teams Safety Spec Relationship Specialty Start Date End Date Parisa Horne MD [address] [address] PCP - General INTERNAL MEDICINE 09/26/23 documented as of this encounter
--- OUTSIDE RECORDS SUMMARY | 2025-07-03 18:09 | XMS_ITS | Encounter Summary ---
Author Organization [facility] Address [address] [place] [address] Care Team Providers Care Inspector Production Plastic Parts Name Role Phone Parisa Horne MD Primary Care Provider [phone] Encounter Details Date Type Department Care Team (Late st Contact Info) Description 10/10/2024 MyChart Message Enc [facility] Medical Group Multispecialty Care - [place] [address] [place] [address] [address] [place], [place] [phone] [place] [address] [place] [address] 157 [place], [place] [phone] Annual physical Social History Tobacco Use Types [...] PM CDT Legal Sex Female 9:35 AM SEWER SEPARATION DESIGNER Gender Identity Female 11/26/2024 3:32 PM CDT Sexual Orientation Straight 11/26/2024 3: 32 PM CDT documented as of this encounter Plan of Treatment Upcoming Encounters Date Type Department Care Team (Late st Contact Info) Description 07/11/2025 10:20 AM CDT Office [facility] 3 [facility], [address] [place] [address] Marcio Lo MD 3 [place] [address] 07/17/2025 10:20 AM CDT Office [facility] - [place] [address] [address] [place] [address] [place] [address] [place] [address] [address] [place] [address] 08/07/2025 10:20 AM SEWER SEPARATION DESIGNER Office [facility] 3 [facility], [address] [place] [address] Marcio Lo MD 3 [place] [address] 10/02/2025 10:00 AM SEWER SEPARATION DESIGNER Office [facility] 3 [facility], [address] [place] [address] Marcio Lo MD 3 [place] [address] documented as of this encounter Visit Diagnoses Not on filedocumented in this encounter Additional Health Concerns Assessment Noted Time PHQ-9 Depression Total Score: 15 024 10:33 AM CDT documented as of this encounter Care Teams Inspector Production Plastic Parts Relationship Specialty Start Date End Date Parisa Horne MD 1188 [facility] 157 [place] [address] PCP - General INTERNAL MEDICINE 09/26/23 documented as of this encounter
--- OUTSIDE RECORDS SUMMARY | 2025-07-03 18:09 | XMS_ITS | Encounter Summary ---
Author Organization [facility] Address [address] [place] [address] Care Team Providers Care Crime Scene Analyst Name Role Phone Parisa Horne MD Primary Care Provider [phone] Encounter Details Date Type Department Care Team (Latest Contact Info) Description 02/16/2024 MyChart Message Enc [facility] Medical Group Multispecialty Care - [place] 1188 [facility] 157 [address] [place], [place] [phone] Parisa Horne MD 1188 [facility] 157 [place], [place] [phone] Potential broken right great toe Social History [...] PM CDT Legal Sex Female 9:35 AM BUSINESS PLANNER Gender Identity Female 11/26/2024 3:32 PM CDT Sexual Orientation Straight 11/26/2024 3: 32 PM CDT documented as of this encounter Plan of Treatment Upcoming Encounters Date Type Department Care Team (Late st Contact Info) Description 07/11/2025 10:20 AM CDT Office Visit [facility] 3 [facility], [address] [place] [address] Marcio Lo MD 3 [place] [address] 07/17/2025 10:20 AM CDT Office Visit [facility] [place] [address] [address] [place] [address] Parisa Horne MD [address] [place] [address] 157 [place] [address] 08/07/2025 10:20 AM BUSINESS PLANNER Office [facility] 3 [facility], [address] [place] [address] Marcio Lo MD 3 [place] [address] 10/02/2025 10:00 AM BUSINESS PLANNER Office Visit [facility] 3 [facility], [address] [place] [address] Marcio Lo MD 3 [place] [address] documented as of this encounter Visit Diagnoses Not on filedocumented in this encounter Additional Health Concerns Assessment Noted Time PHQ-9 Depression Total Score: 17 024 11:44 AM CDT documented as of this encounter Care Teams Crime Scene Analyst Relationship Specialty Start Date End Date Parisa Horne MD [address] [address] PCP - General INTERNAL MEDICINE 09/26/23 documented as of this encounter
--- OUTSIDE RECORDS SUMMARY | 2025-07-03 18:09 | XMS_ITS | Encounter Summary ---
Author Organization [facility] Address [address] [place] [address] Care Team Providers Care General Production Worker Name Role Phone Parisa Horne MD Primary Care Provider [phone] Encounter Details Date Type Department Care Team (Latest Contact Info) Description 03/12/2025 MyChart Message Enc [facility] Medical Group Multispecialty Care - [facility] 3 [facility], [address] [place] [address] Marcio Lo MD 3 [place] [address] [employer] $85 a month Social History Tobacco [...] PM CDT Legal Sex Female 9:35 AM CRIBBER Gender Identity Female 11/26/2024 3:32 PM CDT Sexual Orientation Straight 11/26/2024 3: 32 PM CDT documented as of this encounter Progress Notes * Ramin Art MA - 03/13/2025 10:31 AM CDT Telephoned pt. SHAUNA on to contact office are review message on [employer] documented in this encounter Plan of Treatment Upcoming Encounters Date Type Department Care Team (Late st Contact Info) Description 07/11/2025 10:20 AM CDT Office Visit [facility] - [address], [address] [place] [address] Marcio Lo MD 3 [place], [place] [address] 07/17/2025 10:20 AM CDT [facility] - [place] [address] [address] [place] [address] Parisa Horne MD [address] [place] [address] 157 [place] [address] 08/07/2025 10:20 AM CRIBBER [facility] 3 [facility], [address] [place] [address] Marcio Lo MD 3 [place] [address] 10/02/2025 10:00 AM CRIBBER Office Visit [facility] - [facility] 3 [facility], [address] [place] [address] Marcio Lo MD 3 [place] [address] documented as of this encounter Visit Diagnoses Not on filedocumented in this encounter Additional Health Concerns Assessment Noted Time PHQ-9 Depression Total Score: 11 01/16/ 025 10:10 AM CDT documented as of this encounter Care Teams General Production Worker Relationship Specialty Start Date End Date Parisa Horne MD 1188 [facility] 157 [place] [address] PCP - General INTERNAL MEDICINE 09/26/23 documented as of this encounter
--- OUTSIDE RECORDS SUMMARY | 2025-07-03 18:09 | XMS_ITS | Encounter Summary ---
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 3 [facility], [address] [place] [address] Marcio Lo MD 3 [place] [address] 07/17/2025 10:20 AM CDT Office [facility] - [place] [address] [address] [place] [address] Parisa Horne MD [address] [place] [address] 157 [place] [address] 08/07/2025 10:20 AM LABEL PRINTING MACHINIST Office [facility] 3 [facility], [address] [place] [address] Marcio Lo MD 3 [place] [address] 10/02/2025 10:00 AM LABEL PRINTING MACHINIST Office [facility] 3 [facility], [address] [place] [address] Marcio Lo MD 3 [place] [address] documented as of this encounter Visit Diagnoses Not on filedocumented in this encounter Additional Health Concerns Assessment Noted Time PHQ-9 Depression Total Score: 11 025 10:10 AM CDT documented as of this encounter Care Teams Desk Monitor Relationship Specialty Start Date End Date Parisa Horne MD [address] [phone] PCP - General INTERNAL MEDICINE 09/26/23 documented as of this encounter
--- OUTSIDE RECORDS SUMMARY | 2025-07-03 18:09 | XMS_ITS | Encounter Summary ---
Author Organization [facility] Address [address] [place] [address] Care Team Providers Care Steward/Stewardess Banquet Name Role Phone Parisa Horne MD Primary Care Provider [phone] Reason for Visit * Reason Onset Date Comments Information 02/29/2024 Encounter Details Date Type Department Care Team (Latest Contact Info) Description 02/29/2024 [employer] Message Enc [facility] Medical Group Multispecialty Care - [place] [address] [address] [place] [address] Parisa Horne MD [address] [place] [address] 157 [place] [address] [employer] Social History [...] PM CDT Legal Sex Female 9:35 AM COMMUNITY LIAISON Gender Identity Female 11/26/2024 3:32 PM CDT Sexual Orientation Straight 11/26/2024 3: 32 PM CDT documented as of this encounter Progress Notes * Carolyn Pollard MA - 02/29/2024 4:17 PM CDT Artis from [employer] (phone:[phone]) states that pt would have to pay then be reimbursed. Spoke to pt she is okay with that. Faxed information sheet to [employer] office. 02/29/2024. Fax number: [phone]. Artis states they handle prior auths. documented in this encounter Plan of Treatment Upcoming Encounters Date Type Department Care Team (Late st Contact Info) Description 07/11/2025 10:20 AM CDT Office Visit [facility] 3 [facility], [address] [place] [address] Marcio Lo MD [address] [place] [address] 07/17/2025 10:20 AM CDT [facility] - [place] [address] [address] [place] [address] Parisa Horne MD [address] [place] [address] 157 [place] [address] 08/07/2025 10:20 AM COMMUNITY LIAISON Office Visit [facility] 3 [facility], [address] [place] [address] Marcio Lo MD 3 [place] [address] 10/02/2025 10:00 AM COMMUNITY LIAISON Office Visit [facility] Medical Group Multispecialty Care - [facility] 3 [facility], [address] [place] [address] Marcio Lo MD 3 [place] [address] documented as of this encounter Visit Diagnoses Not on filedocumented in this encounter Additional Health Concerns Assessment Noted Time PHQ-9 Depression Total Score: 17 024 11:44 AM CDT documented as of this encounter Care Teams Steward/Stewardess Banquet Relationship Specialty Start Date End Date Parisa Horne MD [address] [address] PCP - General INTERNAL MEDICINE 09/26/23 documented as of this encounter
--- OUTSIDE RECORDS SUMMARY | 2025-07-03 18:09 | XMS_ITS | Encounter Summary ---
Author Organization [facility] Address [address] [place] [address] Care Team Providers Care Reflesher Name Role Phone Parisa Horne MD Primary Care Provider [phone] Encounter Details Date Type Department Care Team (Latest Contact Info) Description 02/22/[address] 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 Gender Identity Female 11/26/2024 3:32 PM CDT Sexual Orientation Straight 11/26/2024 3: 32 PM CDT documented as of this encounter Plan of Treatment Upcoming Encounters Date Type Department Care Team (Late st Contact Info) Description 07/11/2025 10:20 AM CDT Office Visit [facility] 3 [facility], [address] [place] [address] Marcio Lo MD 3 [place] [address] 07/17/2025 10:20 AM CDT Office Visit [facility] - [place] [address] [address] [place] [address] [place] [address] [place] [address] [address] [place] [address] 08/07/2025 10:20 AM IT ASSISTANT Office Visit [facility] 3 [facility], [address] [place] [address] Marcio Lo MD 3 [place] [address] 10/02/2025 10:00 AM IT ASSISTANT Office Visit [facility] 3 [facility], [address] [place] [address] Marcio Lo MD 3 [place] [address] documented as of this encounter Visit Diagnoses Not on filedocumented in this encounter Additional Health Concerns Assessment Noted Time PHQ-9 Depression Total Score: 17 024 11:44 AM CDT documented as of this encounter Care Teams Reflesher Relationship Specialty Start Date End Date Parisa Horne MD 1188 [facility] 157 [place] [address] PCP - General INTERNAL MEDICINE 09/26/23 documented as of this encounter
--- OUTSIDE RECORDS SUMMARY | 2025-07-03 18:09 | XMS_ITS | Encounter Summary ---
Author Organization [facility] Address [address] [place] [address] Care Team Providers Care Directory Compiler Name Role Phone Parisa Horne MD Primary Care Provider [phone] Encounter Details Date Type Department Care Team (Latest Contact Info) Description 11/30/2023 MyCi-Human Patientst Message Enc [facility] Medical Group Multispecialty Care - [facility] 3 [facility], [address] [place] [address] Marcio Lo MD 3 [place] [address] Persistent migraines Social History Tobacco Use Types [...] PM CDT Legal Sex Female 9:35 AM ACADEMIC SUPPORT 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 Gender Identity Female 11/26/2024 3:32 PM CDT Sexual Orientation Straight 11/26/2024 3: 32 PM CDT documented as of this encounter Plan of Treatment Upcoming Encounters Date Type Department Care Team (Late st Contact Info) Description 07/11/2025 10:20 AM CDT Office Visit [facility] - [address], [address] [place] [address] Marcio Lo MD 3 [place] [address] 07/17/2025 10:20 AM CDT Office Visit [facility] - [place] [address] [address] [place] [address] Parisa Horne MD [address] [place] [address] 157 [place] [address] 08/07/2025 10:20 AM ACADEMIC SUPPORT DIRECTOR Office Visit [facility] - [address], [address] [place] [address] Marcio Lo MD 3 [place] [address] 10/02/2025 10:00 AM ACADEMIC SUPPORT DIRECTOR Office Visit [facility] - [address], [address] [place] [address] Marcio Lo MD 3 [place] [address] documented as of this encounter Visit Diagnoses Not on filedocumented in this encounter Additional Health Concerns Assessment Noted Time PHQ-9 Depression Total Score: 20 024 11:50 AM ACADEMIC SUPPORT DIRECTOR documented as of this encounter Care Teams Directory Compiler Relationship Specialty Start Date End Date Parisa Horne MD [address] [address] PCP - General INTERNAL MEDICINE 09/26/23 documented as of this encounter
--- OUTSIDE RECORDS SUMMARY | 2025-07-03 18:09 | XMS_ITS | Encounter Summary ---
Author Organization [facility] Address [address] [place] [address] Care Team Providers Care Music Therapist [employer] Name Role Phone Parisa Horne MD Primary Care Provider [phone] Encounter Details Date Type Department Care Team (Late st Contact Info) Description 04/24/2024 MyChart Message Enc [facility] Mult[facility]ialty Care [place] [address] [place] [address] [address] [place], [place] [phone] [place] [address] [place] [address] 157 [place], [place] [id number] Itching update Social History Tobacco Use Types [...] PM CDT Legal Sex Female 9: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 Gender Identity Female 11/26/2024 3:32 PM CDT Sexual Orientation Straight 11/26/2024 3: 32 PM CDT documented as of this encounter Plan of Treatment Upcoming Encounters Date Type Department Care Team (Late st Contact Info) Description 07/11/2025 10:20 AM CDT Office Visit [facility] 3 [facility], [address] [place] [address] Marcio Lo MD 3 [place] [address] 07/17/2025 10:20 AM CDT Office Visit [facility] [place] [address] [address] [place] [address] Parisa Horne MD [address] [place] [address] [address] [place] [address] 08/07/2025 10:20 AM FLAME ANNEALING MACHINE OPERATOR Office Visit [facility] 3 [facility], [address] [place] [address] Marcio Lo MD 3 [place] [address] 10/02/2025 10:00 AM FLAME ANNEALING MACHINE OPERATOR Office Visit [facility] 3 [facility], [address] [place] [address] Marcio Lo MD 3 [place] [address] documented as of this encounter Visit Diagnoses Not on filedocumented in this encounter Additional Health Concerns Assessment Noted Time PHQ-9 Depression Total Score: 15 024 3:43 PM CDT documented as of this encounter Care Teams Music Therapist [employer] Relationship Specialty Start Date End Date Parisa Horne MD [address] [address] PCP - General INTERNAL MEDICINE 09/26/23 documented as of this encounter
--- OUTSIDE RECORDS SUMMARY | 2025-07-03 18:09 | XMS_ITS | Encounter Summary ---
Author Organization [facility] Address [address] [place] [address] Care Team Providers Care Muck Boss Name Role Phone Parisa Horne MD Primary Care Provider [phone] Encounter Details Date Type Department Care Team (Late Contact Info) Description 11/04/2023 Managed Objects Message Enc [address] [place], [place] [phone] Marie, [facility] Provider Neurology Social History Tobacco Use Types [...] PM CDT Legal Sex Female 9:35 AM ESTIMATOR Gender Identity Female 11/26/2024 3:32 PM CDT Sexual Orientation Straight 11/26/2024 3: 32 PM CDT documented as of this encounter Plan of Treatment Upcoming Encounters Date Type Department Care Team (Late Contact Info) Description 07/11/2025 10:20 AM CDT [facility] 3 [facility], [address] [place] [address] Marcio Lo MD 3 [place] [address] 07/17/2025 10:20 AM CDT [facility] - [address] [place] [address] Parisa Horne MD [address] [place] [id number] 08/07/2025 10:20 AM ESTIMATOR [facility] 3 [facility], [address] [place] [address] Marcio Lo MD 3 [place] [address] 10/02/2025 10:00 AM ESTIMATOR [facility] 3 [facility], [address] [place] [address] Marcio Lo MD 3 [place] [address] documented as of this encounter Visit Diagnoses Not on filedocumented in this encounter Additional Health Concerns Assessment Noted Time PHQ-9 Depression Total Score: 20 024 11:50 AM ESTIMATOR documented as of this encounter Care Teams Muck Boss Relationship Specialty Start Date End Date Parisa Horne MD [address] [place] [address] [id number] PCP - General INTERNAL MEDICINE 09/26/23 documented as of this encounter
--- OUTSIDE RECORDS SUMMARY | 2025-07-03 18:09 | XMS_ITS | Clinical Summary ---
Author Organization [facility] Address [facility]ly [facility] [place] [address] Care Team Providers Care Gauge Checker Name Role Phone Parisa Horne MD Primary Care Provider [phone] Allergies Active Allergy Reactions Criticality Noted Date [...] Department Care Team Description 07/02/2025 Therapy Plan [facility] - [address], [address] [place] [address] Marcio Lo MD 06/26/2025 Telephone [facility] - [address] [place] [phone] Marcio Lo MD Botox; Reschedule 06/19/2025 Orders Only [facility] - [address], [address] [place] [address] Marcio Lo MD 05/08/2025 10:00 AM CDT Office Visit [facility] - [address], [address] [place] [address] Marcio Lo MD Botox Procedure (botox 155 units (migraines) ) 05/08/2025 Scan [facility] Scanned, [facility] 05/08/2025 Travel 04/03/2025 10:00 AM CDT Office Visit [facility] - [address], [address] [place] [address] Marcio Lo MD Botox Procedure (Boxtox-Jaw dystonia 100 units 1st inj.) 04/03/2025 Scan [facility] Scanned, [facility] 04/03/2025 Travel [...] PM CDT Legal Sex Female 9:35 AM RUBBER GOODS REPAIRER Gender Identity Female 11/26/2024 3:32 PM CDT [...] Description 07/11/2025 10:20 AM CDT [facility] 3 [facility], [address] [place] [address] Marcio Lo MD 3 [place] [address] 07/17/2025 10:20 AM CDT [facility] - [place] [address] [address] [place] [address] [place] [address] [place] [address] 157 [place] [address] 08/07/2025 10:20 AM RUBBER GOODS REPAIRER [facility] 3 [facility], [address] [place] [address] Marcio Lo MD 3 [place] [address] 10/02/2025 10:00 AM RUBBER GOODS REPAIRER [facility] 3 [facility], [address] [place] [address] Marcio Lo MD 3 [place] [address] Health Maintenance Due Date Last Done Comments [...] 09/17/2016 Hepatitis C Completed 11/08/2023 PHQ-2 (Physician [place]) Completed 01/16/2025 Hepatitis A Vaccines Aged Out [...] HEPATITIS C ANTIBODY Routine 11/08/2023 9:29 AM RUBBER GOODS REPAIRER Annual physical exam Establishing care with new doctor, encounter for General medical exam from Last 3 Months or Most Recently Relevant to Health Maintenance Results * PAP SMEAR WITH HPV (03/29/2024) 03/29/2024 [facility] Scanned SCANNING Final Resu lt * HEPATITIS C ANTIBODY (11/08/2023 9:29 AM RUBBER GOODS REPAIRER) HEPATITIS C AB NON-REACTI VE NON-REACT [place]AL[place] 11/08/2023 7:11 PM RUBBER GOODS REPAIRER [facility] Comment: ANTIBODIES TO HCV NOT DETECTED. DOES NOT EXCLUDE THE POSSIBILITY OF EXPOSURE TO HCV. 11/08/2023 9:29 AM RUBBER GOODS REPAIRER Parisa Horne MD LABORATORY Final Result [facility] [address] [place] [address], [id number] from Last 3 Months or Most Recently Relevant to Health Maintenance Insurance [facility] Care Teams Gauge Checker Relationship Specialty Start Date End Date Parisa Horne MD [address]8 [facility] [address] [place] [address] PCP - General INTERNAL MEDICINE 09/26/23
--- OUTSIDE RECORDS SUMMARY | 2025-07-03 18:09 | XMS_ITS | Encounter Summary ---
Author Organization [facility] Address [address] [place] [address] Care Team Providers Care Livestock Farmworker Name Role Phone Parisa Horne MD Primary Care Provider [phone] Encounter Details Date Type Department Care Team (Latest Contact Info) Description 04/02/2024 MyChart Message Enc [facility] Medical Group Multispecialty Care - [place] [address] [place] [address] [address] [place], [place] [address] [place] [address] [place] [address] 157 [place] [address] Appointment on 05/11 Social History Tobacco Use [...] PM CDT Legal Sex Female 9:35 AM ENGINEERING 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 Gender Identity Female 11/26/2024 3:32 PM CDT Sexual Orientation Straight 11/26/2024 3: 32 PM CDT documented as of this encounter Plan of Treatment Upcoming Encounters Date Type Department Care Team (Late st Contact Info) Description 07/11/2025 10:20 AM CDT [facility] Visit [facility] 3 [facility], [address] [place] [address] Marcio Lo MD 3 [place] [address] 07/17/2025 10:20 AM CDT Office Visit [facility] [place] [address] [address] [place] [address] Parisa Horne MD [address] [place] [address] 157 [place] [address] 08/07/2025 10:20 AM ENGINEERING DEPARTMENT CHAIR Office Visit [facility] 3 [facility], [address] [place] [address] Marcio Lo MD 3 [place] [address] 10/02/2025 10:00 AM ENGINEERING DEPARTMENT CHAIR Office Visit [facility] 3 [facility], [address] [place] [address] Marcio Lo MD 3 [place] [address] documented as of this encounter Visit Diagnoses Not on filedocumented in this encounter Additional Health Concerns Assessment Noted Time PHQ-9 Depression Total Score: 15 024 3:43 PM CDT documented as of this encounter Care Teams Livestock Farmworker Relationship Specialty Start Date End Date Parisa Horne MD [address] [address] PCP - General INTERNAL MEDICINE 09/26/23 documented as of this encounter
--- OUTSIDE RECORDS SUMMARY | 2025-07-03 18:09 | XMS_ITS | Encounter Summary ---
Author Organization [facility] Address [address] [place] [address] Care Team Providers Care Branch Service Specialist Name Role Phone Parisa Horne MD Primary Care Provider [phone] Encounter Details Date Type Department Care Team (Late st Contact Info) Description 11/17/2023 MyChart Message Enc [facility] Medical Group Multispecialty Care - [place] [address] [place] [address] [address] [place], [place] [phone] [place] [address] [place] [address] 157 [place] [address] [facility] Social History Tobacco Use Types Packs/Day Years [...] PM CDT Legal Sex Female 9:35 AM HOSPICE COORDINATOR Gender Identity Female 11/26/2024 3:32 PM CDT Sexual Orientation Straight 11/26/2024 3: 32 PM CDT documented as of this encounter Plan of Treatment Upcoming Encounters Date Type Department Care Team (Late st Contact Info) Description 07/11/2025 10:20 AM CDT Office Visit [facility] 3 [facility], [address] [place] [address] Marcio Lo MD 3 [place] [address] 07/17/2025 10:20 AM CDT Office Visit [facility] [place] [address] [address] [place] [address] [place] [address] [place] [address] [address] [place] [address] 08/07/2025 10:20 AM HOSPICE COORDINATOR Office Visit [facility] 3 [facility], [address] [place] [address] Marcio Lo MD 3 [place] [address] 10/02/2025 10:00 AM HOSPICE COORDINATOR Office Visit [facility] 3 [facility], [address] [place] [address] Marcio Lo MD 3 [place] [address] documented as of this encounter Visit Diagnoses Not on filedocumented in this encounter Additional Health Concerns Assessment Noted Time PHQ-9 Depression Total Score: 20 024 11:50 AM HOSPICE COORDINATOR documented as of this encounter Care Teams Branch Service Specialist Relationship Specialty Start Date End Date Parisa Horne MD [address] [address] PCP - General INTERNAL MEDICINE 09/26/23 documented as of this encounter
--- OUTSIDE RECORDS SUMMARY | 2025-07-03 18:09 | XMS_ITS | Encounter Summary ---
Author Organization [facility] Address [address] [place] [address] Care Team Providers Care Alliance Manager Name Role Phone Parisa Horne MD Primary Care Provider [phone] Encounter Details Date Type Department Care Team (Latest Contact Info) Description 01/09/2025 La Más Monahart Message Enc [facility] Medical Group Multispecialty Care - [place] 1188 [facility] 157 [address] [place], [place] [address] Parisa Horne MD 1188 [facility] 157 [place], [place] [phone] Weight loss assistance while on [employer] Social [...] PM CDT Legal Sex Female 9:35 AM FEEDLOT MANAGER Gender Identity Female 11/26/2024 3:32 PM CDT Sexual Orientation Straight 11/26/2024 3: 32 PM CDT documented as of this encounter Plan of Treatment Upcoming Encounters Date Type Department Care Team (Late st Contact Info) Description 07/11/2025 10:20 AM CDT Office Visit [facility] - [address], [address] [place] [address] Marcio Lo MD 3 [place] [address] 07/17/2025 10:20 AM CDT Office Visit [facility] - [place] [address] [address] [place] [address] [place] [address] [place] [address] 157 [place] [address] 08/07/2025 10:20 AM FEEDLOT MANAGER Office Visit [facility] - [address], [address] [place] [address] Marcio Lo MD 3 [place] [address] 10/02/2025 10:00 AM FEEDLOT MANAGER Office Visit [facility] - [address], [address] [place] [address] Marcio Lo MD 3 [place] [address] documented as of this encounter Visit Diagnoses Not on filedocumented in this encounter Additional Health Concerns Assessment Noted Time PHQ-9 Depression Total Score: 15 025 4:15 PM CDT documented as of this encounter Care Teams Alliance Manager Relationship Specialty Start Date End Date Parisa Horne MD [address] [address] PCP - General INTERNAL MEDICINE 09/26/23 documented as of this encounter
--- OUTSIDE RECORDS SUMMARY | 2025-07-03 18:09 | XMS_ITS | Encounter Summary ---
Author Organization [facility] Address [address] [place] [address] Care Team Providers Care Primary Class Teacher Name Role Phone Parisa Horne MD Primary Care Provider [phone] Encounter Details Date Type Department Care Team (Latest Contact Info) Description 02/22/2024 VOZhart Message Enc [facility] Medical Group Multispecialty Care - [place] 1188 [facility] 157 [address] [place], [place] [address] Parisa Horne MD 1188 [facility] 157 [place], [place] [phone] Temporary handicap parking pass Social History Tobacco [...] PM CDT Legal Sex Female 9:35 AM COTTON TIPPER Gender Identity Female 11/26/2024 3:32 PM CDT Sexual Orientation Straight 11/26/2024 3: 32 PM CDT documented as of this encounter Plan of Treatment Upcoming Encounters Date Type Department Care Team (Late st Contact Info) Description 07/11/2025 10:20 AM CDT Office Visit [facility] 3 [facility], [address] [place] [address] Marcio Lo MD 3 [place] [address] 07/17/2025 10:20 AM CDT Office Visit [facility] [place] [address] [address] [place] [address] Parisa Horne MD [address] [place] [address] 157 [place] [address] 08/07/2025 10:20 AM COTTON TIPPER Office Visit [facility] 3 [facility], [address] [place] [address] Marcio Lo MD 3 [place] [address] 10/02/2025 10:00 AM COTTON TIPPER Office Visit [facility] 3 [facility], [address] [place] [address] Marcio Lo MD 3 [place] [address] documented as of this encounter Visit Diagnoses Not on filedocumented in this encounter Additional Health Concerns Assessment Noted Time PHQ-9 Depression Total Score: 17 024 11:44 AM CDT documented as of this encounter Care Teams Primary Class Teacher Relationship Specialty Start Date End Date Parisa Horne MD [address] [address] PCP - General INTERNAL MEDICINE 09/26/23 documented as of this encounter
--- OUTSIDE RECORDS SUMMARY | 2025-07-03 18:09 | XMS_ITS | Encounter Summary ---
Author Organization [facility] Address [address] [place] [address] Care Team Providers Care Bi Specialist Name Role Phone Parisa Horne MD Primary Care Provider [phone] Encounter Details Date Type Department Care Team (Latest Contact Info) Description 03/16/2024 Ener[employer]cohart Message Enc [facility] Medical Group Multispecialty Care - [place] 1188 [facility] 157 [address] [place], [place] [phone] Parisa Horne MD 1188 [facility] 157 [place], [place] [address] Lightheadedness/diz ziness Social History Tobacco Use Types [...] PM CDT Legal Sex Female 9:35 AM MIXOLOGIST Gender Identity Female 11/26/2024 3:32 PM CDT Sexual Orientation Straight 11/26/2024 3: 32 PM CDT documented as of this encounter Plan of Treatment Upcoming Encounters Date Type Department Care Team (Late st Contact Info) Description 07/11/2025 10:20 AM CDT Office Visit [facility] - [address], [address] [place] [address] Marcio Lo MD 3 [place] [address] 07/17/2025 10:20 AM CDT Office Visit [facility] - [place] [address] [address] [place] [address] [place] [address] [place] [address] 157 [place] [address] 08/07/2025 10:20 AM MIXOLOGIST Office Visit [facility] - [address], [address] [place] [address] Marcio Lo MD 3 [place] [address] 10/02/2025 10:00 AM MIXOLOGIST Office Visit [facility] - [address], [address] [place] [address] Marcio Lo MD 3 [place] [address] documented as of this encounter Visit Diagnoses Not on filedocumented in this encounter Additional Health Concerns Assessment Noted Time PHQ-9 Depression Total Score: 17 024 11:44 AM CDT documented as of this encounter Care Teams Bi Specialist Relationship Specialty Start Date End Date Parisa Horne MD [address] [address] PCP - General INTERNAL MEDICINE 09/26/23 documented as of this encounter
--- OUTSIDE RECORDS SUMMARY | 2025-07-03 18:09 | XMS_ITS | Encounter Summary ---
Author Organization [facility] Address [address] [place] [address] Care Team Providers Care Continuous Process Rotary Drum Tanner Name Role Phone Parisa Horne MD Primary Care Provider [phone] Encounter Details Date Type Department Care Team (Late st Contact Info) Description 03/20/2024 MyChart Message Enc [facility] Medical Group Multispecialty Care - [place] [address] [place] [address] [address] [place], [place] [phone] [place] [address] [place] [address] 157 [place], [place] [phone] Vital signs Social History Tobacco Use Types [...] PM CDT Legal 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, [address] [place] [address] Marcio Lo MD 3 [place] [address] 07/17/2025 10:20 AM CDT Office Visit [facility] Care - [place] [address] [address] [place] [address] Parisa Horne MD 1188 [facility] 157 [place] [address] 08/07/2025 10:20 AM DEBURRING MACHINE OPERATOR [facility] 3 [facility], [address] [place] [address] Marcio Lo MD 3 [place] [address] 10/02/2025 10:00 AM DEBURRING MACHINE OPERATOR [facility] 3 [facility], [address] [place] [address] Marcio Lo MD 3 [place] [address] documented as of this encounter Visit Diagnoses Not on filedocumented in this encounter Additional Health Concerns Assessment Noted Time PHQ-9 Depression Total Score: 15 03/20/ 024 3:43 PM CDT documented as of this encounter Care Teams Continuous Process Rotary Drum Tanner Relationship Specialty [place] [address] [place] [address] PCP - General INTERNAL MEDICINE 09/26/23 documented as of this encounter
--- OUTSIDE RECORDS SUMMARY | 2025-07-03 18:09 | XMS_ITS | Encounter Summary ---
Author Organization [facility] Address [address] [place] [address] Care Team Providers Care Metal Machinist Name Role Phone Parisa Horne MD Primary Care Provider [phone] Encounter Details Date Type Department Care Team (Late Contact Info) Description 11/02/2023 [employer] Message Enc [address] [place], [place] [phone] Get [facility], 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 Gender Identity Female 11/26/2024 3:32 PM CDT Sexual Orientation Straight 11/26/2024 3: 32 PM CDT documented as of this encounter Plan of Treatment Upcoming Encounters Date Type Department Care Team (Late Contact Info) Description 07/11/2025 10:20 AM CDT [facility] 3 [facility], [address] [place] [address] Marcio Lo MD 3 [place] [address] 07/17/2025 10:20 AM CDT [facility] - [address] [place] [address] Parisa Horne MD [address] [place] [id number] 08/07/2025 10:20 AM DELIVERY SALES WORKER [facility] 3 [facility], [address] [place] [address] Marcio Lo MD 3 [place] [address] 10/02/2025 10:00 AM DELIVERY SALES WORKER [facility] 3 [facility], [address] [place] [address] Marcio Lo MD 3 [place] [address] documented as of this encounter Visit Diagnoses Not on filedocumented in this encounter Additional Health Concerns Assessment Noted Time PHQ-9 Depression Total Score: 20 024 11:50 AM DELIVERY SALES WORKER documented as of this encounter Care Teams Metal Machinist Relationship Specialty Start Date End Date Parisa Horne MD [address] [place] [id number] PCP - General INTERNAL MEDICINE 09/26/23 documented as of this encounter
[2025-07-03] MEDS: dexAMETHasone SOD PHOS INJ 10 MG/ML 1 ML VIAL IV PUSH (18:15)
--- NOTE | 2025-07-03 18:17 | ED.HA ---
HPI - Headache General Chief Complaint: Headache Stated Complaint: migraine Time Seen by Provider: 07/03/25 17:00 Source: patient and old records reviewed Mode of arrival: ambulatory Limitations: no limitations History of Present Illness HPI Narrative: Patient is a 35-year-old female who presents the ED with report of a migraine headache. Patient has a long history of migraines. Is on a monthly injectable medication and takes sumatriptan p.r.n.. States her current migraine began around 5 days ago and has been persistent. Feels typical of her usual migraines. She has been taking her sumatriptan and reports temporary improvement. Has not taken anything for pain today. Reports photophobia and phonophobia, nausea. Denies fevers, vomiting, dizziness, neck pain. Related Data Allergies Allergy/AdvReac Type Severity Reaction Status Date / Time No Known Allergies Allergy Verified 07/03/25 16:54 Review of Systems Review of Systems: All systems reviewed & are unremarkable except as noted in HPI. All systems reviewed & are unremarkable except as noted in HPI and below PMFSH Past Medical History Medical History Overweight (BMI 25.0-29.9) Depression Hypercholesterolemia Anxiety Family History Family History Mother Hypertension Grandparent Diabetes mellitus Grandparent Pancreas cancer Grandparent Lung cancer Father Diverticulitis Social History Social History Smoking status: Never smoker Alcohol intake: current Alcohol use details: Rare- 1 or 2 per week Substance use: current Living arrangements: with family Spiritual care concerns: No Exam Narrative: GENERAL: Well appearing, well-nourished, non-toxic, in no acute distress. HEAD: Normocephalic, atraumatic. EYES: PERRL/EOMI, conjunctiva clear NECK: No meningeal signs RESPIRATORY: Airway patent, respirations nonlabored. Clear to auscultation bilaterally, no rales, rhonchi, wheezing. CARDIOVASCULAR: Regular rate and rhythm without murmurs, rubs, or gallops. MUSCULOSKELETAL: Moves all extremities. No gross deformities. SKIN: Warm, dry, normal color. NEURO: A&O X3. Speech clear. Cranial nerves II-XII grossly intact. Steady gait. No ataxic movements. No focal deficits PSYCHIATRIC: Appropriate mood and affect. Normal interaction. Course Vital Signs Vital signs: Vital Signs Temperature 98.2 F 07/03/25 16:52 Pulse Rate 85 07/03/25 16:52 Respiratory Rate 16 07/03/25 16:52 Blood Pressure 105/74 07/03/25 16:52 Pulse Oximetry 99 07/03/25 16:52 Temperature 98.2 F 07/03/25 16:52 Pulse Rate 65 07/03/25 17:59 Respiratory Rate 18 07/03/25 17:59 Blood Pressure 114/68 07/03/25 17:59 Pulse Oximetry 100 07/03/25 17:59 MDM - Headache MDM Narrative Medical decision making narrative: Patient's headache was not sudden in onset or maximal in severity. There are no focal neurological deficits on exam. Subarachnoid hemorrhage is felt to be unlikely at this time. There is no history of fever and neck is supple on evaluation without meningeal signs. Meningitis is felt to be unlikely. No traumatic history or signs of trauma on evaluation. No vision changes or ocular signs of acute glaucoma. Patient has history of migraines and states this feels similar to her typical migraines. Patient feeling much better after migraine cocktail. Called out to ED nurse that she is feeling significantly better and would like to be discharged. Patient's headache is felt to be benign cephalgia and reasonable for further outpatient management. Advised patient to follow with PCP for further evaluation. Given reasons to return. Medical Records Attestation: I reviewed the patient's medical records. Discharge Plan Discharge Clinical Impression: Migraine Qualifiers: Migraine type: unspecified Status migrainosus presence: without status migrainosus Intractability: not intractable Qualified Code(s): G43.909 - Migraine, unspecified, not intractable, without status migrainosus Patient Disposition: Home Condition: Stable Instructions: Antibiotic Form, Migraine Headache (ED), Acute Headache (ED) Additional Instructions: Continue Tylenol and ibuprofen, your home Sumatriptan as needed for further headaches. Utilize Zofran as needed for further nausea. Get plenty of rest. Stay well hydrated. Recommend low light/ low stimulus environment, limiting screen time. Follow-up with your primary care doctor for further evaluation if needed. Return to the ED if you experience worsening or severe pain, severe dizziness, vision changes, unable to keep down food or drink, or any other symptoms of concern. Patient Language: Taiwanese Prescriptions: New ondansetron 4 mg tablet,disintegrating 4 mg PO Q8H PRN (Reason: nausea and vomiting) Qty: 15 0RF No Action cyclobenzaprine 10 mg tablet 10 mg PO TID PRN (Reason: muscle spasm) Qty: 14 0RF hydrocodone-acetaminophen 5-325 mg tablet 1 tablet PO Q6H PRN (Reason: pain) Qty: 20 0RF prednisone 50 mg tablet 50 mg PO DAILY Qty: 4 0RF ondansetron 4 mg tablet,disintegrating 4 mg PO Q8H PRN (Reason: nausea and vomiting) Qty: 20 0RF fluoxetine 40 mg capsule 40 mg PO DAILY Qty: 30 0RF bupropion HCl [Wellbutrin XL] 150 mg tablet extended release 24 hr 150 mg PO QAM Qty: 30 0RF ferrous sulfate 325 mg (65 mg iron) tablet 325 mg PO DAILY Qty: 30 0RF ibuprofen 600 mg tablet 600 mg PO Q6H PRN (Reason: cramps) Qty: 30 0RF hydrocodone-acetaminophen 5-325 mg tablet 1 - 2 tablet PO Q6H Qty: 30 0RF Follow-up/Referrals: Coleen,MD Parisa [Primary Care Provider, Unknown] Time of Disposition: 18:31
--- NOTE | 2025-07-03 18:31 | PC.NURSE ---
Pt. states I feel so much better. I feel good enough to go home. CAROLINA Serna notified.
[2025-07-03 18:40] VITALS: BP 112/80; PULSE 72; RESP 16; O2SAT 99
== END 2025-07-03 18:54 | disposition home or self-care (01) ==
PROVIDERS: Emergency Provider Physician Assistant; PCP Internal Medicine
DX: G43.909 Migraine, unspecified, not intractable, without status migrainosus (principal); E78.00 Pure hypercholesterolemia, unspecified; E66.3 Overweight; Z68.25 Body mass index [BMI] 25.0-25.9, adult; F32.A Depression, unspecified; F41.9 Anxiety disorder, unspecified; Z79.899 Other long term (current) drug therapy
CPT/HCPCS: 96361; 96374; 96375; 99284; A9270; J1100; J1200; J1885; J2765; J7030

== ENCOUNTER 2025-07-20 10:17 | Emergency (ER) | payer BC, SELFPAY ==
[2025-07-20 10:42] VITALS: BP 127/86; PULSE 89; RESP 16; TEMP 36.8; O2SAT 100
--- NOTE | 2025-07-20 10:51 | ED_ITS ---
HPI - Headache General Chief Complaint: Headache Stated Complaint: migraine headache Time Seen by Provider: 07/20/25 10:49 Source: patient Mode of arrival: ambulatory Limitations: no limitations History of Present Illness HPI Narrative: Right side migraine headache, throbbing, started 6 days ago, steady, not improving on her regular home medications. Was seen by her neurologist 1 week ago status post buttocks. A lot of stress lately. Patient had similar headache numerous of time in the past. She denies any fever, chills, or focal neuro deficit. Related Data Allergies Allergy/AdvReac Type Severity Reaction Status Date / Time metoclopramide (From Reglan) Allergy Mild restless Verified 07/20/25 11:18 Review of Systems Review of Systems: All systems reviewed & are unremarkable except as noted in HPI and below PMFSH Past Medical History Medical History Overweight (BMI 25.0-29.9) Depression Hypercholesterolemia Anxiety Family History Family History Mother Hypertension Grandparent Diabetes mellitus Grandparent Pancreas cancer Grandparent Lung cancer Father Diverticulitis Social History Social History Smoking status: Never smoker Alcohol intake: current Alcohol use details: Rare- 1 or 2 per week Substance use: current Living arrangements: with family Spiritual care concerns: No Exam Narrative: GENERAL APPEARANCE: WELL-DEVELOPED, WELL-NOURISHED SKIN: NORMAL COLOR HEAD: NORMOCEPHALIC, NONTRAUMATIC EYES: CLEAR CONJUNCTIVA ENT: OROPHARYNX NORMAL, EARS NORMAL, NOSE NORMAL NECK: SUPPLE, NONTENDER CHEST AND RESPIRATORY: AIRWAY PATENT, NO RESPIRATORY DISTRESS, NO ACCESSORY MUSCLE USE HEART: REGULAR RATE/RHYTHM ABDOMEN: SOFT, NONTENDER, NO ORGANOMEGALY, QUIET BOWEL SOUNDS VASCULAR: NORMAL PERIPHERAL PULSES, NORMAL CAPILLARY REFILL. 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 TESTED, NO GROSS MOTOR DEFICIT Course Vital Signs Vital signs: Vital Signs Temperature 36.8 C 07/20/25 10:42 Pulse Rate 89 07/20/25 10:42 Respiratory Rate 16 07/20/25 10:42 Blood Pressure 127/86 07/20/25 10:42 Pulse Oximetry 100 07/20/25 10:42 Temperature 36.8 C 07/20/25 10:42 Pulse Rate 89 07/20/25 10:42 Respiratory Rate 16 07/20/25 10:42 Blood Pressure 127/86 07/20/25 10:42 Pulse Oximetry 100 07/20/25 10:42 MDM - Headache MDM Narrative Medical decision making narrative: MIGRAINE HEADACHE RESOLVED ON NORMAL SALINE, TORADOL, BENADRYL, COMPAZINE AND DECADRON Differential Diagnosis Differential diagnosis: Likely migraine Critical Care Time Critical Care Time Critical Care Time: No Discharge Plan Discharge Clinical Impression: Headache, migraine Patient Disposition: Home Condition: Improved Instructions: Migraine Headache (ED) Additional Instructions: RETURN IF SYMPTOMS ARE WORSENING , CALL YOUR FAMILY PHYSICIAN FOR APPOINTMENT, TAKE TYLENOL NEEDED FOR ACHES AND PAIN, CONTINUE HOME MEDICATIONS. Patient Language: Micronesian Prescriptions: No Action cyclobenzaprine 10 mg tablet 10 mg PO TID PRN (Reason: muscle spasm) Qty: 14 0RF hydrocodone-acetaminophen 5-325 mg tablet 1 tablet PO Q6H PRN (Reason: pain) Qty: 20 0RF prednisone 50 mg tablet 50 mg PO DAILY Qty: 4 0RF ondansetron 4 mg tablet,disintegrating 4 mg PO Q8H PRN (Reason: nausea and vomiting) Qty: 20 0RF fluoxetine 40 mg capsule 40 mg PO DAILY Qty: 30 0RF bupropion HCl [Wellbutrin XL] 150 mg tablet extended release 24 hr 150 mg PO QAM Qty: 30 0RF ferrous sulfate 325 mg (65 mg iron) tablet 325 mg PO DAILY Qty: 30 0RF ibuprofen 600 mg tablet 600 mg PO Q6H PRN (Reason: cramps) Qty: 30 0RF hydrocodone-acetaminophen 5-325 mg tablet 1 - 2 tablet PO Q6H Qty: 30 0RF ondansetron 4 mg tablet,disintegrating 4 mg PO Q8H PRN (Reason: nausea and vomiting) Qty: 15 0RF Follow-up/Referrals: Coleen,MD Parisa [Primary Care Provider, Unknown]
[2025-07-20] MEDS: KETOROLAC 30 MG/ML VIAL (*BKC) IV PUSH (11:10)
[2025-07-20] MEDS: SODIUM CHLORIDE 0.9% IV 1,000 ML 999 ML IV CONT (11:10)
[2025-07-20] MEDS: METOCLOPRAMIDE HCL INJ 10 MG/2 ML VIAL IV PUSH (11:10)
[2025-07-20] MEDS: dexAMETHasone SOD PHOS INJ 10 MG/ML 1 ML VIAL IV PUSH (11:17)
[2025-07-20] MEDS: PROCHLORPERAZINE EDISYLATE 10 MG/2 ML VIAL IV PUSH (11:18)
== END 2025-07-20 13:09 | disposition home or self-care (01) ==
PROVIDERS: Emergency Provider Emergency Medicine; PCP Internal Medicine
DX: G43.909 Migraine, unspecified, not intractable, without status migrainosus (principal); E78.00 Pure hypercholesterolemia, unspecified; E66.3 Overweight; Z68.25 Body mass index [BMI] 25.0-25.9, adult; F32.A Depression, unspecified; F41.9 Anxiety disorder, unspecified; Z79.899 Other long term (current) drug therapy
CPT/HCPCS: 96361; 96374; 96375; 99284; J0780; J1100; J1200; J1885; J2765; J7030